=== PATIENT | male | born 1970 | race Caucasian/White ===

== ENCOUNTER 2020-10-13 22:22 | Emergency (ER) | payer MEDICAID, SELFPAY ==
--- NOTE | ~2020-10-13 | XR_ITS ---
EXAMINATION: XR LUMBOSACRAL SPINE CLINICAL INFORMATION: Fall COMPARISON: None TECHNIQUE: Three views of the lumbosacral spine. FINDINGS: No acute fracture or subluxation. Vertebral body height and alignment maintained. Disc spaces are maintained. Small multilevel endplate osteophytes are present. The sacroiliac joints are symmetric. The sacrum appears intact. Nonobstructive bowel gas pattern. 0.4 cm calcification in the left abdomen could represent a renal calculus. XR/XR lumbar spine 2-3V IMPRESSION: No acute abnormality. Mild degenerative changes throughout the spine.
--- NOTE | ~2020-10-13 | XR_ITS ---
EXAMINATION: XR HIP, RIGHT CLINICAL INFORMATION: Fall. COMPARISON: None TECHNIQUE: Frontal view of pelvis Two views of the right hip. FINDINGS: Bones and soft tissues are normal. No fracture. Alignment is anatomic. Hip joint space is maintained. XR/XR hip RT w PEL1V IMPRESSION: Normal right hip.
[2020-10-13 22:36] VITALS: BP 121/85; BP 130/80; PULSE 92; PULSE 97; RESP 18; TEMP 36.7; O2SAT 96; O2SAT 99; BMI 37.1
[2020-10-13] MEDS: Ketorolac Tromethamine 30 MG/ML VIAL IM (23:01)
--- NOTE | 2020-10-13 23:40 | ED_ITS ---
HPI - Fall General Chief Complaint: Fall Stated Complaint: Fall Source: patient Mode of arrival: ambulatory Limitations: no limitations History of Present Illness HPI Narrative: Patient presents to ED for lower back pain and right hip pain after fall. Patient states he was opening the door to his apartment and the handle came off which caused him to slip back in fall and hit his back and right hip onto a wooden frame. Patient denies hitting head or loss of consciousness. Patient denied he was drinking. Patient has not any blood thinners. Related Data Previous Rx's Medication Instructions Recorded naproxen 500 mg PO BID PRN #20 tab 10/14/20 Allergies Allergy/AdvReac Type Severity Reaction Status Date / Time shellfish derived Allergy Unknown NAUSEA & Verified 10/13/20 22:44 [SHELLFISH DERIVED] VOMITING Review of Systems Review of Systems: Yes all other systems are reviewed and are negative Constitutional: Constitutional: Reports as per HPI and Reports no additional constitutional complaints Eyes: Eyes: Reports as per HPI and Reports no additional eye complaints ENT: Reports system reviewed and no additional complaints, except as docum ented and Reports as per HPI Cardiovascular: Cardiovascular: Reports as per HPI and Reports no additional cardiovascular complaints Respiratory: Respiratory: Reports as per HPI and Reports no additional respiratory complaints Gastrointestinal: Gastrointestinal: Reports as per HPI and Reports no additional gastrointestinal complaints Genitourinary: Genitourinary: Reports no additional male genitourinary complaints and Reports as per HPI Musculoskeletal: Musculoskeletal: Reports no additional musculoskeletal complaints, Reports as per HPI, Reports back pain and Reports arthralgias (Right hip pain) Neurologic: Reports system reviewed and no additional complaints, except as documented and Reports as per HPI Psychiatric: Psychiatric: Reports no additional psychiatric complaints and Reports as per HPI [facility] Past Medical History Medical History (Updated 10/14/20 @ 00:00 by VERENA Reece) Cerebral palsy Diabetes Social History Social History Advance Directives: No Advance Directives Information Provided: No Physical Exam Vital Signs: Vital Signs: Last Vital Signs Temp 98.1 F 10/13/20 22:36 Pulse 97 10/13/20 22:36 Resp 18 10/13/20 22:36 BP 121/85 10/13/20 22:36 Pulse Ox 96 10/13/20 22:36 Body Mass Index 37.1 Const: General: cooperative, healthy appearing, comfortable, no acute distress, well developed, alert, awake and Physically active Orientation/consciousness: patient oriented x3 HENMT: Head: Yes normal to inspection, Yes No palpable skull fracture present, Yes normocephalic, Yes atraumatic and No abrasion Eyes: General: appearance normal, both eyes and all related structures Neck: Neck: Yes normal visual inspection, Yes full ROM, Yes no lymphadenopathy, Yes no meningeal signs, Yes trachea midline, Yes supple and No tender Chest: Chest palpation & inspection: normal inspection of the chest and normal palpation of entire chest wall Resp: Effort & Inspection: normal respiratory effort and able to speak in complete sentences Cardio: Jugular venous distension: no JVD Heart sounds: S1 normal heart sound present and S2 normal heart sound present GI: Inspection: Yes normal to inspection and No abdominal wall ecchymosis Palpation (GI): Soft to palpation, not firm, nontender, no guarding and not rigid : General: No CVA tenderness and Yes no CVA tenderness Back/Spine/Pelvis: Back: no CVA tenderness, No CVA tenderness and back tenderness (lumbar) Skin: General skin exam: no rashes or lesions noted and elasticity normal Neuro: General: patient oriented x3, gait normal, no meningeal signs and CN's II-XI intact bilaterally Cranial nerves: Yes CN's II-XII intact bilaterally Extrem: Other: Positive for right posterior hip pain. Negative for any external or internal rotation of lower extremities General: Yes normal to inspection and Yes full ROM Psych: Appearance: grossly normal, well kempt and not disheveled Course Course Course Narrative: Patient will be stay for back and right hip x-ray. No need for head CT C-spine. Patient denies hitting head or passing out Reevaluation(s) Reevaluation #1: X-rays negative for fracture. Patient will be discharged Time: 23:57 MDM - Fall MDM Narrative Medical decision making narrative: Back pain. Right hip pain Discharge Plan Discharge Clinical Impression: Fall Patient Disposition: Home, Self-Care Instructions: Contusion in Adults (ED) Additional Instructions: Return to the ED immediately for any headache, dizziness, abdominal pain, vomiting, severe back pain, dysuria, hematuria, rectal bleeding, vomiting blood, chest pain, shortness of breath, or any other concerning symptoms. Your x-rays came back negative for any fracture Prescriptions: New naproxen 500 mg tablet 500 mg PO BID PRN (Reason: pain) Qty: 20 RF: 0 Interventions: ED Discharge Assessment Last Done: 10/14/20 00:23 Discharge Date/Time: 10/14/20 00:27 Print Language: Trinidadian
== END 2020-10-14 00:27 | disposition home or self-care (01) ==
PROVIDERS: Emergency Provider Internal Medicine
DX: M54.5 Low back pain (principal); M25.551 Pain in right hip; E11.9 Type 2 diabetes mellitus without complications; G80.9 Cerebral palsy, unspecified; Z91.81 History of falling
CPT/HCPCS: 72100; 73502; 96372; 99284; J1885

== ENCOUNTER 2020-11-10 00:17 | Emergency (ER) | payer MEDICAID, SELFPAY ==
[2020-11-10 00:25] VITALS: BP 116/75; PULSE 94; RESP 20; TEMP 36.4; O2SAT 94; BMI 35.6
--- NOTE | 2020-11-10 00:46 | ED.GENADULT ---
HPI - General Adult General Chief complaint: General Medical Stated complaint: body pain etoh Time Seen by Provider: 11/10/20 00:33 Source: patient Mode of arrival: ambulatory Limitations: no limitations History of Present Illness HPI narrative: Patient comes emergency room complaining of a severe spasm he had earlier tonight prior to arrival. Patient states that at 10:00 o'clock in the morning he started drinking. Patient states that he has frequent body spasms. They recently came today is because all he was drinking, he had a very strong spasm, stronger than usual, his friends got concerned and asked him to come to the emergency room. Patient states head that he does not want any medication and workup. Related Data Previous Rx's Medication Instructions Recorded naproxen 500 mg tablet 500 mg PO BID PRN #20 tab 10/14/20 Allergies Allergy/AdvReac Type Severity Reaction Status Date / Time shellfish derived Allergy Unknown NAUSEA & Verified 11/10/20 00:31 [SHELLFISH DERIVED] VOMITING Review of Systems Review of Systems: Constitutional : No Weight loss, No Fever, No Chills, No Night Sweats, No Fatigue, No Malaise ENT/Mouth : No Hearing loss, No Ear Pain, No Nasal Congestion, No Sinus Pain, No Hoarseness, No sore throat, No Rhinorrhea, No Swallowing Difficulty Eyes: No Eye Pain, No Swelling, No Redness, No Foreign Body, No Discharge, No Vision Changes Cardiovascular : No Chest Pain, No SOB, No Dyspnea on Exertion, No Orthopnea, No Edema, No Palpitations Respiratory : No Cough, No Sputum, No Wheezing, No Smoke Exposure, No Dyspnea Gastrointestinal : No Nausea, No Vomiting, No Diarrhea, No Constipation, No abdominal Pain, No Hematochezia, No Melena Genitourinary : no irregular bleeding, No Dysuria, No Urinary Frequency, No Hematuria, No Urinary Incontinence, No Urgency, No Flank Pain, No Urinary Flow Changes, No Hesitancy Musculoskeletal : Chronic diffuse body pains and muscle aches Skin : No Skin Lesions, No rash Neuro : No Weakness, No Numbness, No Paresthesias, No Loss of Consciousness, No Dizziness, No Headache Psych : No Anxiety/Panic, No Depression, No SI/HI/AH/VH, No Social Issues, Heme/Lymph: No Bruising, No Bleeding,No Lymphadenopathy Endocrine : No Polyuria, No Polydipsia, No Temperature Intolerance PMF Past Medical History Medical History Cerebral palsy Diabetes Social History Social History Advance Directives: No Advance Directives Information Provided: Yes Physical Exam Vital Signs: Vital Signs: Last Vital Signs Temp 97.5 F 11/10/20 00:25 Pulse 94 11/10/20 00:25 Resp 20 11/10/20 00:25 BP 116/75 11/10/20 00:25 Pulse Ox 94 11/10/20 00:25 Body Mass Index 35.6 Const: Other: Appearance: Alert. Oriented X3. No acute distress. Eyes: Pupils equal, round and reactive to light. ENT: Pharynx normal. Neck: Normal inspection. Neck supple. No lymph nodes noted. No crepitus CVS: Normal heart rate and rhythm. Pulses normal. Normal S1 and S2 Respiratory: No respiratory distress. Breath sounds normal. No Wheezing. No rales Abdomen: Soft and nontender. No rigidity. No distention. good BS x4 Skin: Skin warm and dry. Normal skin color. Normal skin turgor. Extremities: No lower extremity edema. No lower extremity edema. No Lacerations. No Rash Neuro: Oriented X 3. No motor deficit. No sensory deficit. Moving all extermities. No slurred speech. Ambulatory with help of his cane, steady gait unassisted. Course Course Course Narrative: Patient states that this is his baseline. Declined any further workup. Patient has a sober ride who will pick him up. Discharge Plan Discharge Clinical Impression: Muscle spasm Patient Disposition: Home, Self-Care Instructions: Muscle Spasm (ED) Additional Instructions: Please follow-up with your primary care physician tomorrow. If you have any worsening or new symptoms, please return to the emergency room or call 911 Prescriptions: No Action naproxen 500 mg tablet 500 mg PO BID PRN (Reason: pain) Qty: 20 RF: 0
== END 2020-11-10 01:08 | disposition home or self-care (01) ==
LOC: HO.ED 00:52
PROVIDERS: Emergency Provider Emergency Medicine
DX: R25.2 Cramp and spasm (principal); E11.9 Type 2 diabetes mellitus without complications; G80.9 Cerebral palsy, unspecified
CPT/HCPCS: 99282; 99283

== ENCOUNTER 2021-03-28 20:30 | Emergency (ER) | payer MEDICAID, SELFPAY ==
--- NOTE | ~2021-03-28 | XR_ITS ---
EXAMINATION: LUMBAR SPINE AND SACRUM/COCCYX CLINICAL INFORMATION: Lower back pain COMPARISON: Lumbar spine 10/13/2020, right hip and pelvis 10/13/2020 TECHNIQUE: 3 views lumbosacral spine, 4 views sacrum and coccyx FINDINGS: Again seen are some minimal degenerative changes present predominantly with some endplate osteophytes. Disc spaces and vertebral body heights are well-maintained. The sacrum and coccyx appear unremarkable. Incidental note made of a sclerotic density in the left femoral head, most likely a bone island, unchanged when compared to 10/13/2020. XR/XR sacrum coccyx min 2V IMPRESSION: No acute finding. Some minimal degenerative changes in the spine are unchanged. Bone island left femoral head unchanged.
--- NOTE | ~2021-03-28 | XR_ITS ---
EXAMINATION: LUMBAR SPINE AND SACRUM/COCCYX CLINICAL INFORMATION: Lower back pain COMPARISON: Lumbar spine 10/13/2020, right hip and pelvis 10/13/2020 TECHNIQUE: 3 views lumbosacral spine, 4 views sacrum and coccyx FINDINGS: Again seen are some minimal degenerative changes present predominantly with some endplate osteophytes. Disc spaces and vertebral body heights are well-maintained. The sacrum and coccyx appear unremarkable. Incidental note made of a sclerotic density in the left femoral head, most likely a bone island, unchanged when compared to 10/13/2020. XR/XR lumbar spine 2-3V IMPRESSION: No acute finding. Some minimal degenerative changes in the spine are unchanged. Bone island left femoral head unchanged.
[2021-03-28 20:49] VITALS: BP 120/76; PULSE 111; RESP 16; TEMP 36.3; O2SAT 96; BMI 34.7
--- NOTE | 2021-03-28 21:06 | ED_ITS ---
HPI - Fall General Chief Complaint: Fall Stated Complaint: fall Source: patient Mode of arrival: ambulatory Limitations: no limitations History of Present Illness HPI Narrative: Patient presents via EMS for lower back pain after slipping in the snow and landing on his bottom. complaint: fall Onset (ago): hour(s) (Within the hour of arrival) Fall from: standing Fall witnessed: yes, by bystander Place fall occurred: street Loss of consciousness: none Prolonged down time: no Symptoms prior to fall: none Context: tripped/slipped (Slipped on ice) Location of injury: back Severity: mild Severity scale (1-10): 4 Quality: aching Associated symptoms (after fall): denies Related Data Previous Rx's Medication Instructions Recorded naproxen 500 mg tablet 500 mg PO BID PRN #20 tab 10/14/20 Allergies Allergy/AdvReac Type Severity Reaction Status Date / Time shellfish derived Allergy Unknown NAUSEA & Verified 11/10/20 00:31 [SHELLFISH DERIVED] VOMITING Review of Systems Review of Systems: Constitutional: No Fever, No Chills ENT/Mouth: No Ear Pain, No Hoarseness, No sore throat Eyes: No Eye Pain, No Swelling, No Redness, No Foreign Body Cardiovascular: No Chest Pain, No SOB Respiratory: No Cough, No Dyspnea Gastrointestinal: No Nausea, No Vomiting, No Diarrhea, No abdominal Pain Genitourinary: No Dysuria, No Hematuria Musculoskeletal: positive lower back pain, No Myalgias, No Joint Swelling Skin: No Skin lacerations, No rash Neuro: No Weakness, No Numbness, No Paresthesias, No Loss of Consciousness, No Dizziness, No Headache Psych: No Anxiety/Panic, No Depression Heme/Lymph: no easy bruising, no Lymphadenopathy Endocrine: No Polyuria, No Polydipsia Yes all other systems are reviewed and are negative [facility], [facility] Past Medical History Attestation statement: The following information was validated with the patient. Source: old records reviewed Medical History Cerebral palsy Diabetes Social History Social History Advance Directives: No Advance Directives Information Provided: Yes Physical Exam Vital Signs: Vital Signs: Last Vital Signs Temp 97.4 F 03/28/21 20:49 Pulse 111 H 03/28/21 20:49 Resp 16 03/28/21 20:49 BP 120/76 03/28/21 20:49 Pulse Ox 96 03/28/21 20:49 BMI result Body Mass Index 34.7 Appearance: Alert. Oriented X3. No acute distress. Eyes: Pupils equal, round and reactive to light. ENT: Pharynx normal. Neck: Normal inspection. Neck supple. CVS: Normal heart rate and rhythm. Pulses normal. Respiratory: No respiratory distress. Breath sounds normal. Abdomen: Soft and nontender. Skin: Skin warm and dry. Normal skin color. Normal skin turgor. Extremities: No lower extremity edema. Moves all extremities against resistance. Neuro: No motor deficit. No sensory deficit. Cranial nerves 2-12 intact. Course Course Course Narrative: 50-year-old male presents with lower back pain after falling in the snow. Patient does have chronic back pain as well as cerebral palsy. Patient does not report any symptoms indicating cauda equina, is able to move all extremities against resistance. Full range of motion bilateral lower extremities, pelvis is stable. No abdominal tenderness to palpation. Will order x-rays of lumbar and sacral spine. X-rays are negative for acute findings requiring emergent intervention. Plan of care is to discharge home and have patient follow-up with primary care physician. Patient verbalized understanding of and agrees to plan of care discharge home. MDM - Fall Differential Diagnosis Differential diagnosis: Likely fracture and compression fracture Medical Records Attestation: I reviewed the patient's medical records. Imaging Data Lumbar coccyx x-ray: Attestation: I personally reviewed and interpreted this imaging study as tika matamoros: Radiologist's impression: EXAMINATION: LUMBAR SPINE AND SACRUM/COCCYX CLINICAL INFORMATION: Lower back pain? COMPARISON: Lumbar spine 10/13/2020, right hip and pelvis 10/13/2020 TECHNIQUE: 3 views lumbosacral spine, 4 views sacrum and coccyx? FINDINGS: Again seen are some minimal degenerative changes present predominantly with some endplate osteophytes. Disc spaces and vertebral body heights are well-maintained. The sacrum and coccyx appear unremarkable. Incidental note made of a sclerotic density in the left femoral head, most likely a bone island, unchanged when compared to 10/13/2020. XR/XR sacrum coccyx min 2V IMPRESSION: No acute finding. Some minimal degenerative changes in the spine are unchanged. Bone island? left femoral head unchanged.? Discharge Plan Discharge Clinical Impression: Fall, Chronic back pain Patient Disposition: Home, Self-Care Instructions: Back Pain (ED), Fall Prevention (ED) Additional Instructions: Your evaluated for injury sustained from a fall. X-rays of lumbar spine and coccyx are negative for acute findings requiring emergent intervention. X-rays indicate chronic degeneration of the spine and a bone island of the left femoral head. These findings are unchanged. Please consider following up with pain management chronic back pain. Thank you for choosing this emergency department for evaluation. Please follow-up with primary care physician as needed. Return to the emergency department for any new, concerning, or worsening symptoms. Prescriptions: No Action naproxen 500 mg tablet 500 mg PO BID PRN (Reason: pain) Qty: 20 RF: 0 Referrals: Raleigh Dasilva MD [Physician] - 2 days (Chronic back pain)
[2021-03-28] MEDS: Lidocaine 4 % Patch ADH..PATCH 2 PATCH TRANSDERMA (21:35)
[2021-03-28] MEDS: Ketorolac Tromethamine 60 MG/2 ML VIAL IM (21:36)
== END 2021-03-28 23:51 | disposition home or self-care (01) ==
PROVIDERS: Emergency Provider Emergency Medicine
DX: M54.50 Low back pain, unspecified (principal); G89.29 Other chronic pain; E11.9 Type 2 diabetes mellitus without complications; G80.9 Cerebral palsy, unspecified
CPT/HCPCS: 72100; 72220; 96372; 99284; J1885

== ENCOUNTER 2021-05-02 21:43 | Emergency (ER) | payer MEDICAID, SELFPAY ==
--- NOTE | ~2021-05-02 | CT_ITS ---
EXAMINATION: NONCONTRAST HEAD CT NONCONTRAST CERVICAL SPINE CT INDICATION INFORMATION: Headache. Fall. Seizure. COMPARISON: 12/20/2018 TECHNIQUE: Separate noncontrast CT examinations of the head and cervical spine were performed. Coronal and sagittal images were created for each examination at the technologist workstation. This CT examination was performed using dose optimization techniques as appropriate, variously including the following: *Automated exposure control *Adjustment of mA and/or kV according to patient size (this includes techniques or standardized protocols for targeted exams where dose is matched to indication/reason for exam; i.e. extremities or head) *Use of iterative reconstruction technique DLP: 1298 mGy-cm FINDINGS: Head: There is no evidence of acute intracranial hemorrhage or territorial infarction. No abnormal mass effect or midline shift is seen. Duggan to white matter differentiation is well preserved. No extra-axial fluid collections are identified. No hydrocephalus. No significant volume loss. There is no abnormal attenuation within the brain parenchyma. No acute osseous or soft tissue abnormality. The mastoid air cells and visualized portions of the paranasal sinuses are well aerated. Cervical spine: There is anatomic alignment of the vertebral bodies and posterior elements. The atlantoaxial and atlantooccipital articulations are intact. Vertebral body heights are maintained. There is multilevel intervertebral disc space narrowing with endplate osteophyte formation and facet arthropathy. No evidence of acute fracture. No prevertebral soft tissue swelling. Visualized portions of the lung apices are unremarkable. The thyroid gland is unremarkable. CT/CT head/brain wo con IMPRESSION: 1. No acute intracranial finding. 2. No fracture or malalignment of the cervical spine. Mild degenerative change.
--- NOTE | ~2021-05-02 | XR_ITS ---
EXAMINATION: XR HIP, LEFT CLINICAL INFORMATION: Fall. Left hip pain. COMPARISON: None TECHNIQUE: Frontal view of pelvis Two views of the left hip. FINDINGS: Bones and soft tissues are normal. No fracture. Alignment is anatomic. Hip joint space is maintained. XR/XR hip LT w PEL1V IMPRESSION: Normal left hip.
--- NOTE | ~2021-05-02 | CT_ITS ---
EXAMINATION: NONCONTRAST HEAD CT NONCONTRAST CERVICAL SPINE CT INDICATION INFORMATION: Headache. Fall. Seizure. COMPARISON: 12/20/2018 TECHNIQUE: Separate noncontrast CT examinations of the head and cervical spine were performed. Coronal and sagittal images were created for each examination at the technologist workstation. This CT examination was performed using dose optimization techniques as appropriate, variously including the following: *Automated exposure control *Adjustment of mA and/or kV according to patient size (this includes techniques or standardized protocols for targeted exams where dose is matched to indication/reason for exam; i.e. extremities or head) *Use of iterative reconstruction technique DLP: 1298 mGy-cm FINDINGS: Head: There is no evidence of acute intracranial hemorrhage or territorial infarction. No abnormal mass effect or midline shift is seen. Duggan to white matter differentiation is well preserved. No extra-axial fluid collections are identified. No hydrocephalus. No significant volume loss. There is no abnormal attenuation within the brain parenchyma. No acute osseous or soft tissue abnormality. The mastoid air cells and visualized portions of the paranasal sinuses are well aerated. Cervical spine: There is anatomic alignment of the vertebral bodies and posterior elements. The atlantoaxial and atlantooccipital articulations are intact. Vertebral body heights are maintained. There is multilevel intervertebral disc space narrowing with endplate osteophyte formation and facet arthropathy. No evidence of acute fracture. No prevertebral soft tissue swelling. Visualized portions of the lung apices are unremarkable. The thyroid gland is unremarkable. CT/CT cervical spine wo con IMPRESSION: 1. No acute intracranial finding. 2. No fracture or malalignment of the cervical spine. Mild degenerative change.
[2021-05-02 21:55] VITALS: BP 134/87; PULSE 91; RESP 18; TEMP 36.7; O2SAT 96; BMI 36.3
[2021-05-02 21:58] LABS: Glucose, Whole Blood 141 mg/dL (60-115)
--- NOTE | 2021-05-02 22:16 | PC.NURSE ---
PT TO ED VIA EMS AFTER HAVING A POSSIBLE SEIZURE AT THIS [facility]. PT WAS SHAKING AND UNRESPONSIVE FOR ABOUT 30 SEC ACCORDING TO BYSTANDERS. PT ARRIVES WITH C-COLLAR IN PLACE. PT C/O PAIN TO LEFT HIP AND LEG AREA WHICH IS CHRONIC PAIN. PT ARRIVES ALERT, SPEAKING IN FULL SENTENCES, RESPIRATIONS N/L. SKIN W/D. WILL CONTINUE TO MONITOR PT. SEIZURE PRECAUTIONS INITIATED.
--- NOTE | 2021-05-02 22:29 | ED_ITS ---
HPI - General Adult General Chief complaint: Seizure Stated complaint: seizure Time Seen by Provider: 05/02/21 22:29 Source: patient Mode of arrival: EMS Limitations: no limitations History of Present Illness HPI narrative: 51-year-old male who presents emergency department for evaluation of a fall and altered mental status. Patient states that he walks with a cane and lost his balance. He states that he fell landing on his left hip and back. He denied any head injury or loss of consciousness. He states that immediately after falling he developed a tightness in his chest pain. He described as a tightness in his chest. He states the head to focus on breathing. He states that he then felt for away. He states that he could not hear anybody but he felt like he was awake. Bystanders stated that he began shaking and was unresponsive. He was not incontinent of bowel or urine. An ambulance was called and the patient was then brought to the emergency department. Patient states that he has cerebral palsy and has weakness of his right arm in his lower extremities and has to use canes to walk. He states that he falls frequently. States that had a fall 2 weeks prior and was seen here in the emergency department. States he feels depressed but he is not suicidal or homicidal. Patient's blood sugar by EMS was 141. He denied being ill prior to falling. He states that he did drink 3 [place] Lights tonight but is last blood light was at 6:00 p.m.. Related Data Previous Rx's Medication Instructions Recorded naproxen 500 mg tablet 500 mg PO BID PRN #20 tab 10/14/20 Allergies Allergy/AdvReac Type Severity Reaction Status Date / Time shellfish derived Allergy Unknown NAUSEA & Verified 11/10/20 00:31 [SHELLFISH DERIVED] VOMITING Review of Systems Verdana 4l Review of Systems: Yes all other systems are reviewed and Verdana 4d are negative [facility] Past Medical History [facility] Narrative: Social history: The patient states he lives alone. He smokes 1 pack of cigarettes per day times 34 years. He does drink alcohol 2 times a week any did drink 3 beers tonight. He states that he occasionally uses marijuana edibles but he did not take any tonight. Medical History Cerebral palsy Diabetes Social History Social History Advance Directives: No Physical Exam Verdana 4l Vital Signs: Verdana 4d Verdana 4d Vital Signs: Verdana 4d Verdana 4Bd Last Vital Signs Verdana 4d Telephone Service Representative New 4d Telephone Service Representative New 4d Temp 98.1 F 05/02/21 21:55 Telephone Service Representative New 4d Pulse 91 05/02/21 21:55 Telephone Service Representative New 4d Resp 18 05/02/21 21:55 BP 134/87 05/02/21 21:55 Pulse Ox 96 05/02/21 21:55 BMI result Body Mass Index 36.3 Const: Other: Awake, alert, male patient, he does not appear to be in distress, answers all questions appropriately. He does not appear to be intoxicated. HENMT: Head: Yes normal to inspection, Yes normocephalic and Yes atraumatic Ears: ex ternal ears normal General nose exam: Normal external nose present Face and sinus: Yes normal facial exam Mouth: Normal oral and palatal mucosa present Throat: Yes posterior oropharynx normal Eyes: General: appearance normal, both eyes and all related structures Pupils: Equal, round and reactive pupils present Neck: Neck: Yes normal visual inspection, Yes no lymphadenopathy, Yes trachea midline and Yes supple Chest: Chest palpation & inspection: normal inspection of the chest and normal palpation of entire chest wall Resp: Effort & Inspection: normal respiratory effort and able to speak in complete sentences Auscultation: clear to auscultation bilaterally Cardio: Rate: regular rate Rhythm: regular rhythm Heart sounds: S1 normal heart sound present, S2 normal heart sound present and no murmurs GI: Inspection: Yes normal to inspection Palpation (GI): Soft to palpation, nontender and no guarding Auscultation: normal bowel sounds : General: Yes no CVA tenderness Back/Spine/Pelvis: Back: no CVA tenderness Skin: General skin exam: no rashes or lesions noted Neuro: Other: Patient has atrophy of his lower extremities and is able to move them against gravity symmetrically. He has symmetric upper extremity strength Cranial nerves: Yes CN's II-XII intact bilaterally and Yes Equal, round and reactive pupils present Cognition (Neuro): normal cognition Extrem: Other: Patient has atrophy of his lower extremities consistent with cerebral palsy. Psych: Appearance: grossly normal Speech and movement: Normal speech and movement present Affect: normal affect Attitude: cooperative Thought process: Normal thought process present Thought content: Normal thought content present Course Course Course Narrative: 51-year-old male with history of cerebral palsy and diabetes who fell this evening landing on his left hip and lower back. Patient then had chest tightness with difficulty breathing. I believe developed hyperventilation syndrome causing him to have shaking. Based on his description of the events I do not think that he had a seizure. The patient had a normal point of care glucose by the paramedics. I did order a CBC, CMP, troponin, EKG, CT scan of the head and cervical spine. Is also complaining of left hip pain from the fall therefore left hip and pelvic x-rays will be obtained. I also ordered to get Toradol 60 mg IM for his left hip pain. 2345: CT scan of the head and cervical spine were negative. X-ray the left hip was negative. Laboratory evaluation was unremarkable including a non detectable troponin. EKG was normal. I did discuss these findings with the patient. The patient most likely had anxiety/hyperventilation syndrome causing him to have a non electrical seizures/pseudo-seizure. He did get some improvement of his pain with the IM Toradol. I did discuss this with the patient. The patient will be discharged home. Medical Decision Making Lab Data Result diagrams: 05/02/21 23:00 05/02/21 23:00 Labs: Lab Results 05/02/21 05/02/21 05/02/21 Range/Units 21:54 23:00 23:00 WBC 14.2 H (4.8-10.8) X10*3/uL RBC 4.89 (4.60-5.80) X10*6/uL Hgb 14.8 (14.0-18.0) g/dl Hct 43.7 (42.0-52.0) % MCV 89.4 (80.0-98.0) fL MCH 30.3 (27.0-33.0) pg MCHC 33.9 (31.0-36.0) g/dl RDW 13.2 (11.0-16.0) % Plt Count 220 (160-400) X10*3/uL MPV 10.1 (9.4-12.4) fL Immature Gran % (Auto) 0.4 (0.0-0.4) % Neut % (Auto) 78.1 H (45-73) % Lymph % (Auto) 12.6 L (20-40) % [place] % (Auto) 8.3 (2-11) % Eos % (Auto) 0.2 (0-4) % Baso % (Auto) 0.4 (0-2) % Lymph # (Auto) 1.8 (1.2-4.9) X10*3/uL [place] # (Auto) 1.2 (0.1-1.2) X10*3/uL Eos # (Auto) 0.0 (0.0-0.4) X10*3/uL Baso # (Auto) 0.1 (0.0-0.2) X10*3/uL Abs Immat Gran (auto) 0.06 H (0.00-0.03) X10*3/uL Absolute Neuts (auto) 11.1 H (2.0-8.3) x10*3/uL Absolute Nucleated RBC 0.000 (0.0-0.012) X10*3/uL Nucleated RBC % (auto) 0.0 (0.0-0.2) /100WBC PT 11.9 (9.9-13.0) SEC INR 1.0 (0.9-1.1) APTT 32.1 (24.1-38.0) SEC Sodium (135-145) mmol/L Potassium (3.3-5.1) mmol/L Chloride (96-108) mmol/L Carbon Dioxide (22-29) mmol/L Anion Gap (12-20) BUN (9-16) mg/dL Creatinine (0.5-1.4) mg/dL Estim Creat Clear Calc Estimated GFR POC Glucose 141 H (60-115) mg/dL Random Glucose (60-115) mg/dL Calcium (8.4-10.2) mg/dL Total Bilirubin (0.0-1.0) mg/dL AST (5-37) U/L ALT (0-40) U/L Alkaline Phosphatase (39-117) U/L Troponin I High Sens (<3.5-35.0) ng/L Total Protein (6.5-8.0) g/dL Albumin (3.5-5.0) g/dL 05/02/21 05/02/21 Range/Units 23:00 23:00 WBC (4.8-10.8) X10*3/uL RBC (4.60-5.80) X10*6/uL Hgb (14.0-18.0) g/dl Hct (42.0-52.0) % MCV (80.0-98.0) fL MCH (27.0-33.0) pg MCHC (31.0-36.0) g/dl RDW (11.0-16.0) % Plt Count (160-400) X10*3/uL MPV (9.4-12.4) fL Immature Gran % (Auto) (0.0-0.4) % Neut % (Auto) (45-73) % Lymph % (Auto) (20-40) % [place] % (Auto) (2-11) % Eos % (Auto) (0-4) % Baso % (Auto) (0-2) % Lymph # (Auto) (1.2-4.9) X10*3/uL [place] # (Auto) (0.1-1.2) X10*3/uL Eos # (Auto) (0.0-0.4) X10*3/uL Baso # (Auto) (0.0-0.2) X10*3/uL Abs Immat Gran (auto) (0.00-0.03) X10*3/uL Absolute Neuts (auto) (2.0-8.3) x10*3/uL Absolute Nucleated RBC (0.0-0.012) X10*3/uL Nucleated RBC % (auto) (0.0-0.2) /100WBC PT (9.9-13.0) SEC INR (0.9-1.1) APTT (24.1-38.0) SEC Sodium 140 (135-145) mmol/L Potassium 4.0 (3.3-5.1) mmol/L Chloride 108 (96-108) mmol/L Carbon Dioxide 25 (22-29) mmol/L Anion Gap 11 L (12-20) BUN 9 (9-16) mg/dL Creatinine 0.77 (0.5-1.4) mg/dL Estim Creat Clear Calc 112.8 Estimated GFR > 60 POC Glucose (60-115) mg/dL Random Glucose 116 H (60-115) mg/dL Calcium 9.4 (8.4-10.2) mg/dL Total Bilirubin 0.4 (0.0-1.0) mg/dL AST 14 (5-37) U/L ALT 21 (0-40) U/L Alkaline Phosphatase 70 (39-117) U/L Troponin I High Sens < 3.5 (<3.5-35.0) ng/L Total Protein 6.8 (6.5-8.0) g/dL Albumin 4.1 (3.5-5.0) g/dL ECG Data Attestation: I personally reviewed and interpreted this ECG as follows: Interpretation: 2302: Normal sinus rhythm rate of 84, normal DE interval QRS duration QTC interval, inverted T-wave in lead 3, no ST segment elevation, no ST segment depression, no PACs, no PVCs, this is a normal EKG. Discharge Plan Discharge Clinical Impression: Fall, Chest pain, Contusion of hip, left, Acute hyperventilation syndrome Patient Disposition: Home, Self-Care Instructions: Hyperventilation (ED), Hip Contusion (ED) Additional Instructions: Your laboratory evaluation was normal. Your EKG was normal. The CT scan of your head and neck revealed no fractures/broken bones The x-ray of your left hip revealed no fracture/broken bones You most likely developed hyperventilation syndrome from falling and hurting her chest causing you to nearly pass out. I do not think that you had a seizure tonight. Take ibuprofen 200 mg pills, 3 pills every 6 hours as needed for pain. Take Tylenol (acetaminophen) 500 mg pills, 2 pills every 4 to 6 hours as needed for pain. Follow-up with your doctor in 2 days. Please return to the emergency department if your symptoms get worse or if you develop any symptoms that are concerning to you. Prescriptions: No Action naproxen 500 mg tablet 500 mg PO BID PRN (Reason: pain) Qty: 20 0RF
--- NOTE | 2021-05-02 22:32 | ECG_ITS ---
Test Reason : SEIZURE Blood Pressure : / mmHG Vent. Rate : 084 BPM Atrial Rate : 084 BPM P-R Int : 148 ms QRS Dur : 090 ms QT Int : 364 ms P-R-T Axes : 037 067 024 degrees QTc Int : 430 ms Normal sinus rhythm Normal ECG When compared with ECG of 06-DEC-2018 17:10, No significant change was found Referred By: Torin Woods Electronically Signed By:MARIE JIMENEZ MD
--- NOTE | 2021-05-02 22:35 | PC.NURSE ---
c-collar removed by . pt to ct in stretcher.
[2021-05-02] MEDS: Ketorolac Tromethamine 30 MG/ML VIAL 60 MG IM (23:00)
--- NOTE | 2021-05-02 23:01 | PC.NURSE ---
pt medicated for pain.
[2021-05-02 23:07] LABS: Basophils Absolute Auto 0.1 X10*3/uL (0.0-0.2); Basophils Percent Auto 0.4 % (0-2); Eosinophils Percent Auto 0.2 % (0-4); Hematocrit 43.7 % (42.0-52.0); Hemoglobin 14.8 g/dl (14.0-18.0); Imm Gran Abs Auto 0.06 X10*3/uL (0.00-0.03); Imm Gran Pct Auto 0.4 % (0.0-0.4); Lymphocytes Absolute Auto 1.8 X10*3/uL (1.2-4.9); Lymphocytes Percent Auto 12.6 % (20-40); MANUAL DIFF FLAG NO; Mean Corpuscular HGB Conc 33.9 g/dl (31.0-36.0); Mean Corpuscular Hemoglobin 30.3 pg (27.0-33.0); Mean Corpuscular Volume 89.4 fL (80.0-98.0); Mean Platelet Volume 10.1 fL (9.4-12.4); Monocytes Absolute Auto 1.2 X10*3/uL (0.1-1.2); Monocytes Percent Auto 8.3 % (2-11); Neutrophils Absolute Auto 11.1 x10*3/uL (2.0-8.3); Neutrophils Percent Auto 78.1 % (45-73); Platelet Count 220 X10*3/uL (160-400); Red Blood Count 4.89 X10*6/uL (4.60-5.80); Red Cell Distribution Width 13.2 % (11.0-16.0); White Blood Count 14.2 X10*3/uL (4.8-10.8)
--- NOTE | 2021-05-02 23:07 | PC.NURSE ---
pt medicated for pain.
[2021-05-02 23:11] LABS: Prothrombin Time 11.9 SEC (9.9-13.0)
[2021-05-02 23:13] LABS: Partial Thromboplastin Time 32.1 SEC (24.1-38.0)
[2021-05-02 23:22] LABS: Alanine Aminotransferase 21 U/L (0-40); Albumin Level 4.1 g/dL (3.5-5.0); Alkaline Phosphatase 70 U/L (39-117); Anion Gap 11 (12-20); Aspartate Amino Transferase 14 U/L (5-37); Bilirubin Total 0.4 mg/dL (0.0-1.0); Blood Urea Nitrogen 9 mg/dL (9-16); Calcium 9.4 mg/dL (8.4-10.2); Carbon Dioxide 25 mmol/L (22-29); Chloride 108 mmol/L (96-108); Creatinine Clr Calc Pharmacy 112.8; Estimated Glomerular Filt Rate > 60; Glucose Random 116 mg/dL (60-115); Sodium 140 mmol/L (135-145); Total Protein 6.8 g/dL (6.5-8.0)
[2021-05-02 23:28] LABS: Troponin-I High Sensitivity < 3.5 ng/L (<3.5-35.0)
== END 2021-05-03 00:38 | disposition home or self-care (01) ==
LOC: HO.ED 05-03 00:26
PROVIDERS: Emergency Provider Emergency Medicine Emergency Medical Services
DX: R07.9 Chest pain, unspecified (principal); F45.8 Other somatoform disorders; S70.02XA Contusion of left hip, initial encounter; W01.0XXA Fall on same level from slipping, tripping and stumbling without subsequent striking against object, initial encounter; G80.9 Cerebral palsy, unspecified; E11.9 Type 2 diabetes mellitus without complications; Z91.81 History of falling; Y93.89 Activity, other specified; Y92.019 Unspecified place in single-family (private) house as the place of occurrence of the external cause; Y99.9 Unspecified external cause status
CPT/HCPCS: 36415; 70450; 72125; 73502; 80053; 82947; 84484; 85025; 85610; 85730; 93005; 96372; 99284; J1885

== ENCOUNTER 2021-10-02 03:49 | Emergency (ER) | payer MEDICAID, SELFPAY ==
[2021-10-02 03:56] VITALS: BP 124/90; PULSE 101; RESP 16; O2SAT 97; BMI 31.1
--- NOTE | 2021-10-02 04:14 | ED_ITS ---
HPI - General Adult General Chief complaint: Back Pain/Injury Stated complaint: Back/Hip pain Time Seen by Provider: 10/02/21 04:12 Source: patient Mode of arrival: ambulatory Limitations: no limitations History of Present Illness HPI narrative: patient with history of cerebral palsy,chronic left hip pain with scoliosis been here multiple times x-ray negative in the past comes here as pain is still there taking naproxen which are not helping much no recent fall or injury Related Data Previous Rx's Medication Instructions Recorded naproxen 500 mg tablet 500 mg PO BID PRN pain #20 tabs 10/14/20 tramadol 50 mg tablet 50 mg PO BEDTIME PRN pain #20 tabs 10/02/21 Allergies Allergy/AdvReac Type Severity Reaction Status Date / Time shellfish derived Allergy Unknown NAUSEA & Verified 10/02/21 03:58 [SHELLFISH DERIVED] VOMITING Review of Systems Review of Systems: Yes all other systems are reviewed and are negative [facility] [place] Past Medical History Medical History Cerebral palsy Diabetes Social History Social History Alcohol intake: former Patient Tobacco Use Status: Current everyday Tobacco user Smoked in Last 30 Days: Yes Use of substances other than those prescribed or required for medical reasons: No Advance Directives: No Physical Exam ED Vital Signs: Vital Signs - 24 hr 10/02/21 03:56 10/02/21 04:22 Temperature 98.1 F Pulse Rate 101 H 90 Respiratory Rate 16 16 Blood Pressure 124/90 H 128/84 Pulse Oximetry 97 93 Oxygen Delivery Method Room Air Nasal Cannula Oxygen Flow Rate 4 BMI result Body Mass Index 31.1 Appearance: Alert. Oriented X3. No acute distress. ENT: Pharynx normal. Oral Mucosa moist Neck: Normal inspection. Neck supple. CVS: Normal heart rate and rhythm. Pulses normal. Respiratory: No respiratory distress. Equal air entry bilateral, no wheezing/rales/rhonchi Abdomen: Soft and nontender. Bowel sounds are present, no mass palpable, no CVA tenderness Skin: Skin warm and dry. Normal skin color. Normal skin turgor. back: scoliosis diffuse muscular pain no focal spinal tenderness good range of movement of the hips without any significant pain pain is more localized in the back area Extremities: No lower extremity edema. No calf tenderness Neuro: Oriented X 3. No motor deficit. walks with a walker with antalgic gait from cerebral palsy Discharge Plan Discharge Clinical Impression: Chronic left hip pain Patient Disposition: Home, Self-Care Instructions: Hip Pain (ED) Additional Instructions: continue to take naproxen as prescribed by your PCP tramadol for severe pain follow with PCP Prescriptions: New tramadol 50 mg tablet 50 mg PO BEDTIME PRN (Reason: pain) Qty: 20 0RF No Action naproxen 500 mg tablet 500 mg PO BID PRN (Reason: pain) Qty: 20 0RF
[2021-10-02 04:22] VITALS: BP 128/84; PULSE 90; RESP 16; TEMP 36.7; O2SAT 93
[2021-10-02] MEDS: Ketorolac Tromethamine 60 MG/2 ML VIAL IM (04:43)
== END 2021-10-02 04:50 | disposition home or self-care (01) ==
PROVIDERS: Emergency Provider Internal Medicine
DX: G89.29 Other chronic pain (principal); M25.552 Pain in left hip; G80.9 Cerebral palsy, unspecified; E11.9 Type 2 diabetes mellitus without complications; F17.200 Nicotine dependence, unspecified, uncomplicated
CPT/HCPCS: 96372; 99284; J1885

== ENCOUNTER 2021-11-23 21:26 | Emergency (ER) | payer MEDICAID, SELFPAY ==
[2021-11-23 22:33] VITALS: BP 122/81; PULSE 92; RESP 18; TEMP 36.8; O2SAT 97; BMI 32.9
--- NOTE | 2021-11-23 23:19 | ED_ITS ---
HPI - Psych General Chief Complaint: Psychiatric Symptoms Stated Complaint: anxiety Time Seen by Provider: 11/23/21 23:18 Source: patient Mode of arrival: EMS Limitations: no limitations History of Present Illness MD complaint: suicidal ideation and feels depressed Onset (ago): week(s) (1) Duration: getting worse History of same: Yes Relieving factors: none Exacerbating factors: other Context: significant life stressor Associated psychiatric symptoms: depression and suicidal ideation Associated symptoms: denies other symptoms Treatments prior to arrival: none If self harm: admits thoughts of self harm and has plan Related Data Home Medications Medication Instructions Recorded Confirmed duloxetine 20 mg capsule,delayed 1 cap PO DAILY 11/23/21 11/23/21 release meloxicam 15 mg tablet 1 tab PO DAILY PRN pain 11/23/21 11/23/21 Allergies Allergy/AdvReac Type Severity Reaction Status Date / Time shellfish derived Allergy Unknown NAUSEA & Verified 10/02/21 03:58 [SHELLFISH DERIVED] VOMITING Review of Systems Review of Systems: Constitutional : No Fever, No Chills ENT/Mouth : No Ear Pain, No Nasal Congestion, No sore throat Eyes: No Eye Pain, No Swelling, No Redness Cardiovascular : No Chest Pain, No SOB Respiratory : No Cough, No Sputum, No Dyspnea Gastrointestinal : No Nausea, No Vomiting, No Diarrhea, No Hematochezia, No Melena Genitourinary : No Dysuria, No Urinary Frequency, No Hematuria Musculoskeletal : No Myalgias Skin : No Skin Lesions, No rash Neuro : No Weakness, No Numbness, No Paresthesias, No Dizziness, No Headache Psych : positive Anxiety, positive Depression, positive SI no HI Heme/Lymph: No Lymphadenopathy Endocrine : No Polyuria, No Polydipsia All other systems reviewed and are negative [facility] Past Medical History Attestation statement: The following information was validated with the patient. Medical History Cerebral palsy Diabetes Social History Social History Alcohol intake: former Patient Tobacco Use Status: Current everyday Tobacco user Advance Directives: No Advance Directives Information Provided: Yes Physical Exam Vital Signs: Vital Signs: Last Vital Signs Temp 98.3 F 11/23/21 22:33 Pulse 92 11/23/21 22:33 Resp 18 11/23/21 22:33 BP 122/81 11/23/21 22:33 Pulse Ox 97 11/23/21 22:33 O2 Del Method 11/23/21 22:33 BMI result Body Mass Index 32.9 Appearance: Alert. Oriented X3. No acute distress. Eyes: Pupils equal, round and reactive to light. ENT: Pharynx normal. Neck: Normal inspection. Neck supple. CVS: Normal heart rate and rhythm. Pulses normal. Respiratory: No respiratory distress. Breath sounds normal. Abdomen: Soft and non-tender. Skin: Skin warm and dry. Normal skin color. Normal skin turgor. Extremities: No lower extremity edema. No calf ttp Neuro: Oriented X 3. No motor deficit. No sensory deficit. CN2-12 intact Course Course Course Narrative: Physician observation started at 1150pm. Patient placed in physician observation because the patient needed more time for BHN to asses the need for psych admission. At the time observation was started the patient's vitals were stable, patient is alert and oriented but anxious given ativan for sleep, Neuro: nonfocal, CV RRR, Lungs clear Physician observation ended at 230am Patient seen and cleared by crisis. Plan is to follow up as outpatient. NAD, lungs clear, CV RRR, Abd nontender, Neuro intact. Disposition is for home. MDM - Psych MDM Narrative Medical decision making narrative: 51 yo male with hx of CP and depression - here with c/o depression and SI. Will obtain labs and order BHN consult. PO ativan for sleep. Lab Data Result diagrams: 11/23/21 23:54 11/23/21 23:54 Labs: Lab Results 11/23/21 11/23/21 11/23/21 Range/Units 23:16 23:25 23:54 WBC 11.3 H (4.8-10.8) X10*3/uL RBC 5.39 (4.60-5.80) X10*6/uL Hgb 16.2 (14.0-18.0) g/dl Hct 48.5 (42.0-52.0) % MCV 90.0 (80.0-98.0) fL MCH 30.1 (27.0-33.0) pg MCHC 33.4 (31.0-36.0) g/dl RDW 13.5 (11.0-16.0) % Plt Count 237 (160-400) X10*3/uL MPV 10.0 (9.4-12.4) fL Immature Gran % (Auto) 0.4 (0.0-0.4) % Neut % (Auto) 65.6 (45-73) % Lymph % (Auto) 23.9 (20-40) % [place] % (Auto) 7.9 (2-11) % Eos % (Auto) 1.8 (0-4) % Baso % (Auto) 0.4 (0-2) % Lymph # (Auto) 2.7 (1.2-4.9) X10*3/uL [place] # (Auto) 0.9 (0.1-1.2) X10*3/uL Eos # (Auto) 0.2 (0.0-0.4) X10*3/uL Baso # (Auto) 0.0 (0.0-0.2) X10*3/uL Abs Immat Gran (auto) 0.04 H (0.00-0.03) X10*3/uL Absolute Neuts (auto) 7.4 (2.0-8.3) x10*3/uL Absolute Nucleated RBC 0.000 (0.0-0.012) X10*3/uL Nucleated RBC % (auto) 0.0 (0.0-0.2) /100WBC Sodium (135-145) mmol/L Potassium (3.3-5.1) mmol/L Chloride (96-108) mmol/L Carbon Dioxide (22-29) mmol/L Anion Gap (12-20) BUN (9-16) mg/dL Creatinine (0.5-1.4) mg/dL Estim Creat Clear Calc Estimated GFR POC Glucose 132 H (60-115) mg/dL Random Glucose (60-115) mg/dL Calcium (8.4-10.2) mg/dL Total Bilirubin (0.0-1.0) mg/dL Direct Bilirubin (0.0-0.5) mg/dL AST (5-37) U/L ALT (0-40) U/L Alkaline Phosphatase (39-117) U/L Total Protein (6.5-8.0) g/dL Albumin (3.5-5.0) g/dL Urine Opiates Screen (Not Detect) Urine Fentanyl Screen (Not Detect) Ur Barbiturates Screen (Not Detect) Ur Phencyclidine Scrn (Not Detect) Ur Amphetamines Screen (Not Detect) U Benzodiazepines Scrn (Not Detect) Urine Cocaine Screen (Not Detect) U Marijuana (THC) Screen (Not Detect) Ethyl Alcohol mg/dL COVID-19 (MARGARET) Negative (Negative) COVID-19 Clin Com See Note 11/23/21 11/23/21 11/24/21 Range/Units 23:54 23:54 00:31 WBC (4.8-10.8) X10*3/uL RBC (4.60-5.80) X10*6/uL Hgb (14.0-18.0) g/dl Hct (42.0-52.0) % MCV (80.0-98.0) fL MCH (27.0-33.0) pg MCHC (31.0-36.0) g/dl RDW (11.0-16.0) % Plt Count (160-400) X10*3/uL MPV (9.4-12.4) fL Immature Gran % (Auto) (0.0-0.4) % Neut % (Auto) (45-73) % Lymph % (Auto) (20-40) % [place] % (Auto) (2-11) % Eos % (Auto) (0-4) % Baso % (Auto) (0-2) % Lymph # (Auto) (1.2-4.9) X10*3/uL [place] # (Auto) (0.1-1.2) X10*3/uL Eos # (Auto) (0.0-0.4) X10*3/uL Baso # (Auto) (0.0-0.2) X10*3/uL Abs Immat Gran (auto) (0.00-0.03) X10*3/uL Absolute Neuts (auto) (2.0-8.3) x10*3/uL Absolute Nucleated RBC (0.0-0.012) X10*3/uL Nucleated RBC % (auto) (0.0-0.2) /100WBC Sodium 144 (135-145) mmol/L Potassium 4.0 (3.3-5.1) mmol/L Chloride 107 (96-108) mmol/L Carbon Dioxide 25 (22-29) mmol/L Anion Gap 16 (12-20) BUN 15 D (9-16) mg/dL Creatinine 0.91 (0.5-1.4) mg/dL Estim Creat Clear Calc 90.8 Estimated GFR > 60 POC Glucose (60-115) mg/dL Random Glucose 116 H (60-115) mg/dL Calcium 9.9 (8.4-10.2) mg/dL Total Bilirubin 0.4 (0.0-1.0) mg/dL Direct Bilirubin 0.2 (0.0-0.5) mg/dL AST 14 (5-37) U/L ALT 21 (0-40) U/L Alkaline Phosphatase 75 (39-117) U/L Total Protein 7.4 (6.5-8.0) g/dL Albumin 4.6 (3.5-5.0) g/dL Urine Opiates Screen Not Detected (Not Detect) Urine Fentanyl Screen Not Detected (Not Detect) Ur Barbiturates Screen Not Detected (Not Detect) Ur Phencyclidine Scrn Not Detected (Not Detect) Ur Amphetamines Screen Not Detected (Not Detect) U Benzodiazepines Scrn Not Detected (Not Detect) Urine Cocaine Screen Not Detected (Not Detect) U Marijuana (THC) Screen Not Detected (Not Detect) Ethyl Alcohol < 10 mg/dL COVID-19 (MARGARET) (Negative) COVID-19 Clin Com Discharge Plan Discharge Clinical Impression: Depression Patient Disposition: Home, Self-Care Instructions: Depression (ED) Additional Instructions: return to ED for any worsening symptoms or concerns please follow up with your providers Prescriptions: No Action meloxicam 15 mg tablet 1 tab PO DAILY PRN (Reason: pain) duloxetine 20 mg capsule,delayed release(DR/EC) 1 cap PO DAILY
[2021-11-23 23:28] LABS: Glucose, Whole Blood 132 mg/dL (60-115)
[2021-11-23 23:37] LABS: COVID-19 Test Negative (Negative); IDNOW Serial# 16C4AD1C
[2021-11-23] MEDS: LORazepam 1 MG TABLET PO (23:49)
[2021-11-24] LABS: Basophils Percent Auto 0.4 % (0-2); Eosinophils Absolute Auto 0.2 X10*3/uL (0.0-0.4); Eosinophils Percent Auto 1.8 % (0-4); Hematocrit 48.5 % (42.0-52.0); Hemoglobin 16.2 g/dl (14.0-18.0); Imm Gran Abs Auto 0.04 X10*3/uL (0.00-0.03); Imm Gran Pct Auto 0.4 % (0.0-0.4); Lymphocytes Absolute Auto 2.7 X10*3/uL (1.2-4.9); Lymphocytes Percent Auto 23.9 % (20-40); MANUAL DIFF FLAG NO; Mean Corpuscular HGB Conc 33.4 g/dl (31.0-36.0); Mean Corpuscular Hemoglobin 30.1 pg (27.0-33.0); Monocytes Absolute Auto 0.9 X10*3/uL (0.1-1.2); Monocytes Percent Auto 7.9 % (2-11); Neutrophils Absolute Auto 7.4 x10*3/uL (2.0-8.3); Neutrophils Percent Auto 65.6 % (45-73); Platelet Count 237 X10*3/uL (160-400); Red Blood Count 5.39 X10*6/uL (4.60-5.80); Red Cell Distribution Width 13.5 % (11.0-16.0); White Blood Count 11.3 X10*3/uL (4.8-10.8)
[2021-11-24 00:21] LABS: Anion Gap 16 (12-20); Blood Urea Nitrogen 15 mg/dL (9-16); Calcium 9.9 mg/dL (8.4-10.2); Carbon Dioxide 25 mmol/L (22-29); Chloride 107 mmol/L (96-108); Creatinine Clr Calc Pharmacy 90.8; Estimated Glomerular Filt Rate > 60; Glucose Random 116 mg/dL (60-115); Sodium 144 mmol/L (135-145)
[2021-11-24 00:25] LABS: Alanine Aminotransferase 21 U/L (0-40); Albumin Level 4.6 g/dL (3.5-5.0); Alkaline Phosphatase 75 U/L (39-117); Aspartate Amino Transferase 14 U/L (5-37); Bilirubin Direct 0.2 mg/dL (0.0-0.5); Bilirubin Total 0.4 mg/dL (0.0-1.0); Ethanol < 10 mg/dL; Total Protein 7.4 g/dL (6.5-8.0)
[2021-11-24 00:56] LABS: Amphetamine Screen Urine Not Detected (Not Detect); Barbiturates, Urine Not Detected (Not Detect); Benzodiazepines Screen Urine Not Detected (Not Detect); Cannabinoid Screen Urine Not Detected (Not Detect); Cocaine Screen Urine Not Detected (Not Detect); Fentanyl, urine Not Detected (Not Detect); Opiate Screen Urine Not Detected (Not Detect); Phencyclidine Screen Urine Not Detected (Not Detect)
== END 2021-11-24 02:41 | disposition home or self-care (01) ==
PROVIDERS: Emergency Provider Emergency Medicine
DX: F33.1 Major depressive disorder, recurrent, moderate (principal); R45.851 Suicidal ideations; Z20.822 Contact with and (suspected) exposure to COVID-19; Z79.899 Other long term (current) drug therapy; F17.200 Nicotine dependence, unspecified, uncomplicated; Z71.6 Tobacco abuse counseling
CPT/HCPCS: 36415; 80048; 80076; 80307; 82077; 82947; 85025; 87635; 99283; 99284

== ENCOUNTER 2021-12-09 21:44 | Emergency (ER) | payer MEDICAID, SELFPAY ==
[2021-12-09 22:57] VITALS: PULSE 94; RESP 18; TEMP 36.3; O2SAT 93; BMI 32.0
== END 2021-12-10 06:19 | disposition left against medical advice (07) ==
LOC: HO.ED 12-10 05:44
PROVIDERS: Emergency Provider Emergency Medicine
DX: H53.8 Other visual disturbances (principal)
CPT/HCPCS: 99281

== ENCOUNTER 2022-05-21 02:39 | Inpatient (IN) | payer OTHER, SELFPAY ==
--- NOTE | ~2022-05-21 | XR_ITS ---
EXAMINATION: LEFT FEMUR 2 VIEWS RIGHT FEMUR 2 VIEWS BILATERAL HIPS WITH PELVIS 5 VIEWS CLINICAL INFORMATION: Pain status post fall COMPARISON: None TECHNIQUE: As above nonweightbearing FINDINGS: No fracture dislocation or side. No knee effusion. Incidental bone island left femoral head and greater trochanter. XR/XR femur RT 2V IMPRESSION: No fracture.
--- NOTE | ~2022-05-21 | XR_ITS ---
EXAMINATION: LEFT FEMUR 2 VIEWS RIGHT FEMUR 2 VIEWS BILATERAL HIPS WITH PELVIS 5 VIEWS CLINICAL INFORMATION: Pain status post fall COMPARISON: None TECHNIQUE: As above nonweightbearing FINDINGS: No fracture dislocation or side. No knee effusion. Incidental bone island left femoral head and greater trochanter. XR/XR hip BI w PEL1V IMPRESSION: No fracture.
--- NOTE | ~2022-05-21 | XR_ITS ---
EXAMINATION: LEFT FEMUR 2 VIEWS RIGHT FEMUR 2 VIEWS BILATERAL HIPS WITH PELVIS 5 VIEWS CLINICAL INFORMATION: Pain status post fall COMPARISON: None TECHNIQUE: As above nonweightbearing FINDINGS: No fracture dislocation or side. No knee effusion. Incidental bone island left femoral head and greater trochanter. XR/XR femur LT 2V IMPRESSION: No fracture.
--- NOTE | ~2022-05-21 | CT_ITS ---
EXAMINATION: CT head/brain wo IV con CLINICAL INFORMATION: Reason for Exam unwitnessed fall COMPARISON: CT head without contrast 05/02/2021 TECHNIQUE: Contiguous axial imaging was performed from the skull base to vertex without intravenous contrast. Sagittal and coronal reformatted images were obtained. This CT examination was performed using dose optimization techniques as appropriate, variously including the following: * Automated exposure control * Adjustment of mA and/or kV according to patient size (this includes techniques or standardized protocols for targeted exams where dose is matched to indication/reason for exam; i.e. extremities or head) Use of iterative reconstruction technique DLP: 698 mGy-cm FINDINGS: No acute osseous or soft tissue abnormality. The mastoid air cells and visualized portions of the paranasal sinuses are well aerated. There is no evidence of acute intracranial hemorrhage or territorial infarction. No abnormal mass effect or midline shift is seen. [place]ug[place] to white matter differentiation is well preserved. No extra-axial fluid collections are identified. No hydrocephalus. No significant volume loss. There is no abnormal attenuation within the brain parenchyma. CT/CT head/brain wo IV con IMPRESSION: No acute intracranial abnormality including hemorrhage, mass effect, hydrocephalus, or acute territorial edematous infarction.
[2022-05-21 02:50] VITALS: BP 113/81; PULSE 105; RESP 17; TEMP 36.6; O2SAT 96; BMI 32.9
--- NOTE | 2022-05-21 03:05 | MHC.EDTECH ---
PT made aware that a urine sample is needed. Pt states he is unable to ogo right now. Urinal left bedside/call ackerman in reach
--- NOTE | 2022-05-21 03:12 | PC.NURSE ---
Pt changed over, belongings secured. tech ed/woodshop teacher at bedside for labs. Awaiting primary MD santana.
--- NOTE | 2022-05-21 03:16 | ED_ITS ---
HPI - Psych General Chief Complaint: Psychiatric Symptoms Stated Complaint: HI/SI Time Seen by Provider: 05/21/22 03:11 Source: patient and EMS Mode of arrival: EMS Limitations: no limitations History of Present Illness HPI Narrative: Patient comes to the emergency room complaining of suicidal and homicidal ideations. Patient lives in his van, seems that earlier today he had an argument with his brother. Police department picked up the patient after his brother called 911. Here in the emergency room, patient states that he has suicidal thoughts, but also patient states that ?if his brother's screws him ove r , he will kill him. Patient has been off his medications for several weeks Related Data Home Medications Medication Instructions Recorded Confirmed No Known Home Meds 05/21/22 05/21/22 Allergies Allergy/AdvReac Type Severity Reaction Status Date / Time shellfish derived Allergy Unknown NAUSEA & Verified 12/09/21 22:57 [SHELLFISH DERIVED] VOMITING Review of Systems Review of Systems: Constitutional : No Weight loss, No Fever, No Chills, No Night Sweats, No Fatigue, No Malaise ENT/Mouth : No Hearing loss, No Ear Pain, No Nasal Congestion, No Sinus Pain, No Hoarseness, No sore throat, No Rhinorrhea, No Swallowing Difficulty Eyes: No Eye Pain, No Swelling, No Redness, No Foreign Body, No Discharge, No Vision Changes Cardiovascular : No Chest Pain, No SOB, No Dyspnea on Exertion, No Orthopnea, No Edema, No Palpitations Respiratory : No Cough, No Sputum, No Wheezing, No Smoke Exposure, No Dyspnea Gastrointestinal : No Nausea, No Vomiting, No Diarrhea, No Constipation, No abdominal Pain, No Hematochezia, No Melena Genitourinary : no irregular bleeding, No Dysuria, No Urinary Frequency, No Hematuria, No Urinary Incontinence, No Urgency, No Flank Pain, No Urinary Flow Changes, No Hesitancy Musculoskeletal : No joint pain, No Myalgias, No Joint Swelling Skin : No Skin Lesions, No rash Neuro : No Weakness, No Numbness, No Paresthesias, No Loss of Consciousness, No Dizziness, No Headache Psych : Complain of feeling angry, depressed, suicidal and homicidal towards his brother Heme/Lymph: No Bruising, No Bleeding,No Lymphadenopathy Endocrine : No Polyuria, No Polydipsia, No Temperature Intolerance PMFSH Past Medical History Medical History Cerebral palsy Diabetes Social History Social History Alcohol intake: former Patient Tobacco Use Status: Current everyday Tobacco user Advance Directives: No Advance Directives Information Provided: Yes Physical Exam Vital Signs: Vital Signs: Last Vital Signs Temp 97.8 F 05/21/22 02:50 Pulse 105 H 05/21/22 02:50 Resp 17 05/21/22 02:50 BP 113/81 05/21/22 02:50 Pulse Ox 96 05/21/22 02:50 O2 Del Method 05/21/22 02:50 BMI result Body Mass Index 32.9 Course Course Course Narrative: -denies any physical complaints. Patient has chronic right upper and lower extremity weakness from previous CVA. -routine labs pending. -Care team consult pending -physician observation started at 03:20 Discharge Plan Discharge Clinical Impression: Feeling suicidal, Homicidal ideation Patient Disposition: Still a Patient Prescriptions: No Action No Known Home Meds
[2022-05-21 03:24] LABS: Basophils Percent Auto 0.3 % (0-2); Eosinophils Absolute Auto 0.1 X10*3/uL (0.0-0.4); Hematocrit 45.7 % (42.0-52.0); Hemoglobin 15.6 g/dl (14.0-18.0); Imm Gran Abs Auto 0.04 X10*3/uL (0.00-0.03); Imm Gran Pct Auto 0.3 % (0.0-0.4); Lymphocytes Absolute Auto 2.5 X10*3/uL (1.2-4.9); Lymphocytes Percent Auto 21.4 % (20-40); MANUAL DIFF FLAG SCAN; Mean Corpuscular HGB Conc 34.1 g/dl (31.0-36.0); Mean Corpuscular Hemoglobin 29.9 pg (27.0-33.0); Mean Corpuscular Volume 87.5 fL (80.0-98.0); Mean Platelet Volume 10.5 fL (9.4-12.4); Monocytes Percent Auto 8.4 % (2-11); Neutrophils Absolute Auto 7.9 x10*3/uL (2.0-8.3); Neutrophils Percent Auto 68.6 % (45-73); PLT CLUMP 1; Red Blood Count 5.22 X10*6/uL (4.60-5.80); Red Cell Distribution Width 13.1 % (11.0-16.0); SCAN SMEAR FLAG 1
[2022-05-21 03:35] LABS: COVID-19 Test Negative (Negative); IDNOW Serial# 6674DD1D
[2022-05-21 03:36] LABS: White Blood Count 11.5 X10*3/uL (4.8-10.8)
[2022-05-21 03:42] LABS: Platelet Count 206 X10*3/uL (160-400)
[2022-05-21 03:43] LABS: SLIDE REVIEW VERIFIED
[2022-05-21 03:48] LABS: Acetaminophen LAB < 17 mcg/mL (<30); Ethanol 52 mg/dL; Salicylate < 5.0 mg/dL (15-30)
[2022-05-21 03:53] LABS: Alanine Aminotransferase 39 U/L (0-40); Albumin Level 4.4 g/dL (3.5-5.0); Alkaline Phosphatase 66 U/L (39-117); Anion Gap 18 (12-20); Aspartate Amino Transferase 19 U/L (5-37); Bilirubin Total 0.4 mg/dL (0.0-1.0); Blood Urea Nitrogen 13 mg/dL (9-16); Calcium 9.4 mg/dL (8.4-10.2); Carbon Dioxide 19 mmol/L (22-29); Chloride 108 mmol/L (96-108); Creatinine Clr Calc Pharmacy 107.5; Estimated Glomerular Filt Rate > 60; Glucose Random 92 mg/dL (60-115); Potassium 4.1 mmol/L (3.3-5.1); Sodium 141 mmol/L (135-145); Total Protein 7.1 g/dL (6.5-8.0)
[2022-05-21 04:10] VITALS: BP 131/75; PULSE 99; RESP 16; TEMP 36.5; O2SAT 97
[2022-05-21 04:21] LABS: Appearance Urine Clear; Color Urine Yellow; Glucose Urine UA Negative (Negative); Leukocyte Esterase Urine Negative (Negative); Nitrite Urine Negative (Negative); PH 5.5 (5.0-9.0); Urine Blood Negative (Negative); Urine Ketones Trace mg/dL (Negative); Urine Protein Negative (Neg-Trace)
[2022-05-21 04:30] LABS: Amphetamine Screen Urine Not Detected (Not Detect); Barbiturates, Urine Not Detected (Not Detect); Benzodiazepines Screen Urine Not Detected (Not Detect); Cannabinoid Screen Urine Not Detected (Not Detect); Cocaine Screen Urine Not Detected (Not Detect); Fentanyl, urine Not Detected (Not Detect); Opiate Screen Urine Not Detected (Not Detect); Phencyclidine Screen Urine Not Detected (Not Detect)
[2022-05-21 08:39] VITALS: BP 130/76; PULSE 102; RESP 16; O2SAT 97
--- NOTE | 2022-05-21 08:41 | PHA.MEDREC ---
Pharmacy Consult ? Medication Reconciliation Pharmacy has completed the medication reconciliation. Patient states noncompliance, however, patient had three scripts picked up from [facility] on 05/19/22. I chose to add these to the list as its something the patient should be taking
[2022-05-21] MEDS: Atorvastatin Calcium 10 MG TABLET PO (10:18)
[2022-05-21] MEDS: metFORMIN HCl 500 MG TABLET PO ×2 (10:19→21:17)
[2022-05-21 10:35] VITALS: BP 139/80; PULSE 93; RESP 16; O2SAT 94
--- NOTE | 2022-05-21 11:17 | PC.NURSE ---
PT ATE ALL OF BREAKFAST, AWAITING CARE TEAM CONSULT FOR REPORTED ENDORSEMENT OF SI/HI TOWARDS BROTHER. CONTINUES TO ENDORSE HI TOWARDS BROTHER, REMAINS CALM AND COOPERATIVE AFFECT. ASKING TO USE CELL PHONE TO CHECK MESSAGES, PT EXPLAINED NEED FOR SAFETY PROTOCOLS AND INABILITY TO HAVE ACCESS TO CELL PHONE WHILE UNDER CRISIS EVALUATION. PT ARGUEMENTATIVE ABOUT THIS.
[2022-05-21 12:20] LABS: Glucose, Whole Blood 110 mg/dL (60-115)
[2022-05-21] MEDS: Nicotine Polacrilex 2 MG GUM BUCCAL ×2 (14:46→23:56)
[2022-05-21] MEDS: LORazepam 1 MG TABLET 2 MG PO (14:46)
[2022-05-21 15:09] VITALS: BP 123/81; PULSE 94; RESP 17; TEMP 36.6; O2SAT 96
--- NOTE | 2022-05-21 17:05 | ECG_ITS ---
Test Reason : GENERAL MEDICAL Blood Pressure : / mmHG Vent. Rate : 098 BPM Atrial Rate : 098 BPM P-R Int : 148 ms QRS Dur : 088 ms QT Int : 362 ms P-R-T Axes : 044 082 013 degrees QTc Int : 462 ms Normal sinus rhythm Normal ECG When compared with ECG of 02-MAY-2021 23:02, No significant change was found Referred By: Randi Lange Electronically Signed By:Yassine Staples
[2022-05-21 18:27] VITALS: BP 113/81; PULSE 105; RESP 17; TEMP 36.6; O2SAT 96
[2022-05-21 20:56] VITALS: BMI 33.9
[2022-05-21 21:10] LABS: Glucose, Whole Blood 164 mg/dL (60-115)
[2022-05-21] MEDS: traZODone HCL 50 MG TABLET PO (21:16)
[2022-05-22 06:00] VITALS: BP 136/84; PULSE 105; RESP 18; TEMP 36.4; O2SAT 96
[2022-05-22] MEDS: Nicotine Polacrilex 2 MG GUM 4 MG BUCCAL ×3 (08:31→15:28)
--- NOTE | 2022-05-22 09:05 | HO.PSYADMNOT ---
Documented by User: Laly FranzRocioAmee, APPRENTICE PAINTER HAND 05/22/22 09:05 HPI Chief Complaint: Depression with Si/Hi [facility] Medical History Cerebral palsy Diabetes Diagnostics Vital Signs (24Hr): Vital Signs - 24 hr 05/21/22 10:35 05/21/22 15:09 05/21/22 18:27 Temperature 97.9 F 97.8 F Pulse Rate 93 94 105 H Respiratory Rate 16 17 17 Blood Pressure 139/80 123/81 113/81 Pulse Oximetry 94 96 96 Oxygen Delivery Method Room Air Room Air Room Air BMI result Body Mass Index 33.9 Labs 05/21/22 03:15 05/21/22 03:15 Labs: Laboratory Results - last 48 hr 05/21/22 05/21/22 05/21/22 03:10 03:15 03:15 WBC 11.5 H RBC 5.22 Hgb 15.6 Hct 45.7 MCV 87.5 MCH 29.9 MCHC 34.1 RDW 13.1 Plt Count 206 MPV 10.5 Immature Gran % (Auto) 0.3 Neut % (Auto) 68.6 Lymph % (Auto) 21.4 [place] % (Auto) 8.4 Eos % (Auto) 1.0 Baso % (Auto) 0.3 Lymph # (Auto) 2.5 [place] # (Auto) 1.0 Eos # (Auto) 0.1 Baso # (Auto) 0.0 Abs Immat Gran (auto) 0.04 H Absolute Neuts (auto) 7.9 Absolute Nucleated RBC 0.000 Nucleated RBC % (auto) 0.0 Smear Tech's Comments VERIFIED Sodium 141 Potassium 4.1 Chloride 108 Carbon Dioxide 19 L Anion Gap 18 BUN 13 Creatinine 0.76 Estim Creat Clear Calc 107.5 Estimated GFR > 60 POC Glucose Random Glucose 92 Calcium 9.4 Total Bilirubin 0.4 AST 19 ALT 39 Alkaline Phosphatase 66 Total Protein 7.1 Albumin 4.4 Urine Color Urine Appearance Urine pH Ur Specific [place] Urine Protein Urine Glucose (UA) Urine Ketones Urine Blood Urine Nitrite Ur Leukocyte Esterase Salicylates Urine Opiates Screen Urine Fentanyl Screen Acetaminophen Ur Barbiturates Screen Ur Phencyclidine Scrn Ur Amphetamines Screen U Benzodiazepines Scrn Urine Cocaine Screen U Marijuana (THC) Screen Ethyl Alcohol COVID-19 (MARGARET) Negative COVID-19 Clin Com See Note 05/21/22 05/21/22 05/21/22 03:15 04:13 04:13 WBC RBC Hgb Hct MCV MCH MCHC RDW Plt Count MPV Immature Gran % (Auto) Neut % (Auto) Lymph % (Auto) [place] % (Auto) Eos % (Auto) Baso % (Auto) Lymph # (Auto) [place] # (Auto) Eos # (Auto) Baso # (Auto) Abs Immat Gran (auto) Absolute Neuts (auto) Absolute Nucleated RBC Nucleated RBC % (auto) Smear Tech's Comments Sodium Potassium Chloride Carbon Dioxide Anion Gap BUN Creatinine Estim Creat Clear Calc Estimated GFR POC Glucose Random Glucose Calcium Total Bilirubin AST ALT Alkaline Phosphatase Total Protein Albumin Urine Color Yellow Urine Appearance Clear Urine pH 5.5 Ur Specific [place] 1.010 Urine Protein Negative Urine Glucose (UA) Negative Urine Ketones Trace Urine Blood Negative Urine Nitrite Negative Ur Leukocyte Esterase Negative Salicylates < 5.0 L Urine Opiates Screen Not Detected Urine Fentanyl Screen Not Detected Acetaminophen < 17 Ur Barbiturates Screen Not Detected Ur Phencyclidine Scrn Not Detected Ur Amphetamines Screen Not Detected U Benzodiazepines Scrn Not Detected Urine Cocaine Screen Not Detected U Marijuana (THC) Screen Not Detected Ethyl Alcohol 52 COVID-19 (MARGARET) COVID-[facility] 05/21/22 05/21/22 11:49 21:07 WBC RBC Hgb Hct MCV MCH MCHC RDW Plt Count MPV Immature Gran % (Auto) Neut % (Auto) Lymph % (Auto) [place] % (Auto) Eos % (Auto) Baso % (Auto) Lymph # (Auto) [place] # (Auto) Eos # (Auto) Baso # (Auto) Abs Immat Gran (auto) Absolute Neuts (auto) Absolute Nucleated RBC Nucleated RBC % (auto) Smear Tech's Comments Sodium Potassium Chloride Carbon Dioxide Anion Gap BUN Creatinine Estim Creat Clear Calc Estimated GFR POC Glucose 110 164 H Random Glucose Calcium Total Bilirubin AST ALT Alkaline Phosphatase Total Protein Albumin Urine Color Urine Appearance Urine pH Ur Specific [place] Urine Protein Urine Glucose (UA) Urine Ketones Urine Blood Urine Nitrite Ur Leukocyte Esterase Salicylates Urine Opiates Screen Urine Fentanyl Screen Acetaminophen Ur Barbiturates Screen Ur Phencyclidine Scrn Ur Amphetamines Screen U Benzodiazepines Scrn Urine Cocaine Screen U Marijuana (THC) Screen Ethyl Alcohol COVID-19 (MARGARET) COVID-19 Clin Com Meds/Allergies Meds Home Medications Medication Instructions Recorded Confirmed Type atorvastatin 10 mg tablet 10 mg PO DAILY 05/21/22 05/21/22 History metformin 500 mg tablet 500 mg PO BID 05/21/22 05/21/22 History triamcinolone acetonide 0.5 % 1 appl topical BEDTIME 05/21/22 05/21/22 History topical ointment Allergies Allergies Allergy/AdvReac Type Severity Reaction Status Date / Time shellfish derived Allergy Unknown NAUSEA & Verified 12/09/21 22:57 [SHELLFISH DERIVED] VOMITING Assessment & Plan Statement Statement: I have reviewed the history and physical and performed a pertinent examination on my patient. No changes have occurred unless specified. If the History and Physical was not performed prior to admission, the Hospitalist's service will be consulted for completing the admission physical. Time Spent With Patient Time: Total time managing care of this patient today ____ minutes. Documented by User: Miguel A Chau MD 05/22/22 14:25 HPI Date of Service: 05/22/22 Chief Complaint: Depression with Si/Hi Sources of Information: patient interviewed, chart reviewed and crisis/core team assessment reviewed HPI Subjective Notes: [place] Warning, Conditional Voluntary and 3 Day Narrative: Pt is a 52 yo male with hx of Depression, Cerebal PMFSH Medical History Cerebral palsy Diabetes Diagnostics Labs 05/21/22 03:15 05/21/22 03:15 Meds/Allergies Meds Home Medications Medication Instructions Recorded Confirmed Type atorvastatin 10 mg tablet 10 mg PO DAILY 05/21/22 05/21/22 History metformin 500 mg tablet 500 mg PO BID 05/21/22 05/21/22 History triamcinolone acetonide 0.5 % 1 appl topical BEDTIME 05/21/22 05/21/22 History topical ointment Allergies Allergies Allergy/AdvReac Type Severity Reaction Status Date / Time shellfish derived Allergy Unknown NAUSEA & Verified 12/09/21 22:57 [SHELLFISH DERIVED] VOMITING Mental Status Exam Mental Status Exam Narrative: Pt is alert and oriented; behavior is cooperative, friendly and calm; patient is not in distress; dressed in casual attire with unkempt hair but adequate hygiene; mood is described as good and affect congruent; eye contact appropriate; Speech is normal rate, volume and prosody and not pressured; no psychomotor agitation/retardation present; thought process is organized and goal directed; Thought content is on tx; otherwise pertinent to relevant topics and without any delusional content, paranoid ideations or grandiosity; denies any SI/HI. There is no evidence of perceptual disturbance. Patients insight and judgment appear intact.
[2022-05-22] MEDS: metFORMIN HCl 500 MG TABLET PO (09:11)
[2022-05-22] MEDS: Atorvastatin Calcium 10 MG TABLET PO (09:11)
[2022-05-22] MEDS: Nicotine 21 MG PATCH.TD24 TRANSDERMA (09:11)
[2022-05-22 09:14] LABS: Glucose, Whole Blood 108 mg/dL (60-115)
[2022-05-22 09:45] LABS: Estimated Average Glucose 134 mg/dL; Hemoglobin A1c % 6.3 %
[2022-05-22 10:30] LABS: Cholesterol 178 mg/dL; HDL Cholesterol 31 mg/dL; LDL Cholesterol Calculated 127 mg/dl; Magnesium 1.8 mg/dL (1.6-2.6); Triglycerides 100 mg/dL
[2022-05-22 11:03] LABS: Folate 10.6 ng/mL (> or = 4.0); Free T4 (Free Thyroxine) 0.96 ng/dL (0.71-1.85); Thyroid Stimulating Hormone 2.79 uIU/mL (0.32-4.0); Vitamin B12 459 pg/mL (200-900)
--- NOTE | 2022-05-22 14:43 | P.HPPS_ITS ---
HPI Date of Service: 05/22/22 Chief Complaint: Depression with Si/Hi Sources of Information: patient interviewed, chart reviewed and crisis/core team assessment reviewed HPI Subjective Notes: [place] Warning, Conditional Voluntary and 3 Day Narrative: Pt is a 52 yo male with hx of Depression, cerebral palsy, diabetes with diabetic neuropathy who presents for homicidal and suicidal ideation in the face of relational strife. Patient said that overall he is not really depressed despite being homeless and with multiple medical comorbidities. Patient's parents are and he was living in their house until his brother, the executor of the estate kicked him out with plans to sell the house. The agreement was that the brother would sell the house and the money would be divided between them, however no formal Will was made. Patient learned the other day that his brother sold the house and kept the money and planned not to share any of it. Patient got very upset and started drinking heavily for 2 days and told his family that he was going to kill his brother and then kill himself. Patient patient said he changed his mind was because of his 2 nephews, not wanting to leave them father less. He called 911 on himself wanting to get help to be safe. Patient denies any other SI prior to this; he denies history aggression, manic episodes, AVH, trauma or drug use/abuse other than binge drinking every few weeks. Patient says that he is currently bitter, hurt and angry but that his homicidal thoughts have resolved and he said he is not going to harm his brother. No SI at all. Discussed why not take legal action and patient said that given his medical comorbidities he will not likely live that long and he is currently homeless; that said, the extended family has been urging him to take legal action and supports his claim 1/2 house. Patient does not who feel the need for medications for anxiety or depression. He would like to restart baclofen for muscle spasms associated with cerebral palsy. Past Psychiatric History: No psychiatric admissions Patient was once on Cymbalta for neuropathic pain but this was discontinued Patient did take an overdose of baclofen 1 or 2 years ago but he said it was not an intentional overdose rather just being foolish while drinking Medical Evaluation Reviewed: Yes [facility] Medical History (Updated 05/22/22 @ 17:25 by Miguel A Chau MD) Cerebral palsy Diabetes Family History: Deferred Social History: Currently homeless living in his car Substance History: Binge drinks for few weeks and then sober for few weeks Trauma History: Denies Diagnostics Vital Signs (24Hr): Vital Signs - 24 hr 05/21/22 15:09 05/21/22 18:27 05/22/22 06:00 Temperature 97.9 F 97.8 F 97.6 F Pulse Rate 94 105 H 105 H Respiratory Rate 17 17 18 Blood Pressure 123/81 113/81 136/84 Pulse Oximetry 96 96 96 Oxygen Delivery Method Room Air Room Air Room Air BMI result Body Mass Index 33.9 Labs 05/21/22 03:15 05/21/22 03:15 Labs: Laboratory Results - last 48 hr 05/21/22 05/21/22 05/21/22 03:10 03:15 03:15 WBC 11.5 H RBC 5.22 Hgb 15.6 Hct 45.7 MCV 87.5 MCH 29.9 MCHC 34.1 RDW 13.1 Plt Count 206 MPV 10.5 Immature Gran % (Auto) 0.3 Neut % (Auto) 68.6 Lymph % (Auto) 21.4 Fleming % (Auto) 8.4 Eos % (Auto) 1.0 Baso % (Auto) 0.3 Lymph # (Auto) 2.5 Fleming # (Auto) 1.0 Eos # (Auto) 0.1 Baso # (Auto) 0.0 Abs Immat Gran (auto) 0.04 H Absolute Neuts (auto) 7.9 Absolute Nucleated RBC 0.000 Nucleated RBC % (auto) 0.0 Smear Tech's Comments VERIFIED Sodium 141 Potassium 4.1 Chloride 108 Carbon Dioxide 19 L Anion Gap 18 BUN 13 Creatinine 0.76 Estim Creat Clear Calc 107.5 Estimated GFR > 60 POC Glucose Random Glucose 92 Estimat Average Glucose Hemoglobin A1c % Calcium 9.4 Magnesium Total Bilirubin 0.4 AST 19 ALT 39 Alkaline Phosphatase 66 Total Protein 7.1 Albumin 4.4 Triglycerides Cholesterol LDL Cholesterol, Calc HDL Cholesterol Vitamin B12 Folate TSH Free T4 Urine Color Urine Appearance Urine pH Ur Specific [place] Urine Protein Urine Glucose (UA) Urine Ketones Urine Blood Urine Nitrite Ur Leukocyte Esterase Salicylates Urine Opiates Screen Urine Fentanyl Screen Acetaminophen Ur Barbiturates Screen Ur Phencyclidine Scrn Ur Amphetamines Screen U Benzodiazepines Scrn Urine Cocaine Screen U Marijuana (THC) Screen Ethyl Alcohol COVID-19 (MARGARET) Negative COVID-19 Clin Com See Note 05/21/22 05/21/22 05/21/22 03:15 04:13 04:13 WBC RBC Hgb Hct MCV MCH MCHC RDW Plt Count MPV Immature Gran % (Auto) Neut % (Auto) Lymph % (Auto) Fleming % (Auto) Eos % (Auto) Baso % (Auto) Lymph # (Auto) Fleming # (Auto) Eos # (Auto) Baso # (Auto) Abs Immat Gran (auto) Absolute Neuts (auto) Absolute Nucleated RBC Nucleated RBC % (auto) Smear Tech's Comments Sodium Potassium Chloride Carbon Dioxide Anion Gap BUN Creatinine Estim Creat Clear Calc Estimated GFR POC Glucose Random Glucose Estimat Average Glucose Hemoglobin A1c % Calcium Magnesium Total Bilirubin AST ALT Alkaline Phosphatase Total Protein Albumin Triglycerides Cholesterol LDL Cholesterol, Calc HDL Cholesterol Vitamin B12 Folate TSH Free T4 Urine Color Yellow Urine Appearance Clear Urine pH 5.5 Ur Specific [place] 1.010 Urine Protein Negative Urine Glucose (UA) Negative Urine Ketones Trace Urine Blood Negative Urine Nitrite Negative Ur Leukocyte Esterase Negative Salicylates < 5.0 L Urine Opiates Screen Not Detected Urine Fentanyl Screen Not Detected Acetaminophen < 17 Ur Barbiturates Screen Not Detected Ur Phencyclidine Scrn Not Detected Ur Amphetamines Screen Not Detected U Benzodiazepines Scrn Not Detected Urine Cocaine Screen Not Detected U Marijuana (THC) Screen Not Detected Ethyl Alcohol 52 COVID-19 (MARGARET) COVID-19 [employer] 05/21/22 05/21/22 05/22/22 11:49 21:07 08:37 WBC RBC Hgb Hct MCV MCH MCHC RDW Plt Count MPV Immature Gran % (Auto) Neut % (Auto) Lymph % (Auto) Fleming % (Auto) Eos % (Auto) Baso % (Auto) Lymph # (Auto) Fleming # (Auto) Eos # (Auto) Baso # (Auto) Abs Immat Gran (auto) Absolute Neuts (auto) Absolute Nucleated RBC Nucleated RBC % (auto) Smear Tech's Comments Sodium Potassium Chloride Carbon Dioxide Anion Gap BUN Creatinine Estim Creat Clear Calc Estimated GFR POC Glucose 110 164 H Random Glucose Estimat Average Glucose 134 Hemoglobin A1c % 6.3 Calcium Magnesium Total Bilirubin AST ALT Alkaline Phosphatase Total Protein Albumin Triglycerides Cholesterol LDL Cholesterol, Calc HDL Cholesterol Vitamin B12 Folate TSH Free T4 Urine Color Urine Appearance Urine pH Ur Specific [place] Urine Protein Urine Glucose (UA) Urine Ketones Urine Blood Urine Nitrite Ur Leukocyte Esterase Salicylates Urine Opiates Screen Urine Fentanyl Screen Acetaminophen Ur Barbiturates Screen Ur Phencyclidine Scrn Ur Amphetamines Screen U Benzodiazepines Scrn Urine Cocaine Screen U Marijuana (THC) Screen Ethyl Alcohol COVID-19 (MARGARET) COVID-19 [employer] 05/22/22 05/22/22 08:37 09:11 WBC RBC Hgb Hct MCV MCH MCHC RDW Plt Count MPV Immature Gran % (Auto) Neut % (Auto) Lymph % (Auto) Fleming % (Auto) Eos % (Auto) Baso % (Auto) Lymph # (Auto) Fleming # (Auto) Eos # (Auto) Baso # (Auto) Abs Immat Gran (auto) Absolute Neuts (auto) Absolute Nucleated RBC Nucleated RBC % (auto) Smear Tech's Comments Sodium Potassium Chloride Carbon Dioxide Anion Gap BUN Creatinine Estim Creat Clear Calc Estimated GFR POC Glucose 108 Random Glucose Estimat Average Glucose Hemoglobin A1c % Calcium Magnesium 1.8 Total Bilirubin AST ALT Alkaline Phosphatase Total Protein Albumin Triglycerides 100 Cholesterol 178 LDL Cholesterol, Calc 127 HDL Cholesterol 31 Vitamin B12 459 Folate 10.6 TSH 2.79 Free T4 0.96 Urine Color Urine Appearance Urine pH Ur Specific [place] Urine Protein Urine Glucose (UA) Urine Ketones Urine Blood Urine Nitrite Ur Leukocyte Esterase Salicylates Urine Opiates Screen Urine Fentanyl Screen Acetaminophen Ur Barbiturates Screen Ur Phencyclidine Scrn Ur Amphetamines Screen U Benzodiazepines Scrn Urine Cocaine Screen U Marijuana (THC) Screen Ethyl Alcohol COVID-19 (MARGARET) COVID-19 Clin Com Meds/Allergies Meds Home Medications Medication Instructions Recorded Confirmed Type atorvastatin 10 mg tablet 10 mg PO DAILY 05/21/22 05/21/22 History metformin 500 mg tablet 500 mg PO BID 05/21/22 05/21/22 History triamcinolone acetonide 0.5 % 1 appl topical BEDTIME 05/21/22 05/21/22 History topical ointment Allergies Allergies Allergy/AdvReac Type Severity Reaction Status Date / Time shellfish derived Allergy Unknown NAUSEA & Verified 12/09/21 22:57 [SHELLFISH DERIVED] VOMITING Mental Status Exam Mental Status Exam Narrative: Pt is alert and oriented; behavior is cooperative, calm; patient is not in distress, uses walker; dressed in hospital attire with unkempt hair and scruffy; mood is described as bitter and affect congruent; eye contact appropriate; Speech is normal rate, volume and prosody and not pressured; no psychomotor agitation/retardation present; thought process is organized and goal directed; Thought content is on tx; otherwise pertinent to relevant topics and without any delusional content, paranoid ideations or grandiosity; denies any SI/HI. There is no evidence of perceptual disturbance. Patients insight and judgment appear intact. Assessment & Plan Assessment & Plan (1) Adjustment disorder with mixed disturbance of emotions and conduct: Status: Acute Code(s): F43.25 - Adjustment disorder with mixed disturbance of emotions and conduct (2) Cerebral palsy: Status: Acute Code(s): G80.9 - Cerebral palsy, unspecified (3) Diabetes: Status: Acute Code(s): E11.9 - Type 2 diabetes mellitus without complications Plan Pt is a 52 yo male with hx of Depression, cerebral palsy, diabetes with diabetic neuropathy who presents for homicidal and suicidal ideation in the face of relational strife. Patient is very angry at his brother for stealing what he believes is his half of the inheritance. Patient said that when he found out, he was in a drunken rage and made homicidal statements. He thought better of it, not wanting to leave his nephews father less and called crisis/911 to get him to the hospital for stability. Patient reports that he is not going to hurt his brother and that the HI has resolved. Denies any SI. Denies history of HI or aggressive behavior. He plans to go to stay with family in [place] following jacob hayden. Patient denies psychiatric symptoms and does not want medications. -admit for observation and to demonstrate stability. Will also get collateral. Plan: 3 day notice Q 15 minute checks Patient uses walker Continue home medication Restart baclofen 10 mg t.i.d. p.r.n. Patient educated on: diagnosis, medication risk/benefits and medical condition Informed Consent: understands Reason for continued inpatient stay Substantial Risk for: harm to self, harm to others and rapid decompensation Statement Statement: I have reviewed the history and physical and performed a pertinent examination on my patient. No changes have occurred unless specified. If the History and Physical was not performed prior to admission, the Hospitalist's service will be consulted for completing the admission physical. Time Spent With Patient Time: Total time managing care of this patient today ____ minutes.
[2022-05-22] MEDS: Acetaminophen 325 MG TABLET 650 MG PO (16:12)
[2022-05-22] MEDS: Baclofen 10 MG TABLET PO (16:12)
[2022-05-22 18:00] VITALS: BP 148/86; PULSE 115; RESP 16; TEMP 36.6; O2SAT 98
[2022-05-22 18:28] LABS: Glucose, Whole Blood 160 mg/dL (60-115)
--- NOTE | 2022-05-22 19:39 | PC.NURSE ---
Pt is alert and oriented X4. Pt is ambulating with a walker, seen in group room B sitting on the floor. Pt reports he fell on his hips while trying to get out of his chair. He reports 10/10 pain. Vital signs stable. Avionics Systems Engineer provider Keysha Barton notified, TO order for hospitalist consult given and completed. Order for a wheelchair and medical bed given.
[2022-05-22] MEDS: NaPROXEN 500 MG TABLET PO (20:31)
[2022-05-23] MEDS: Acetaminophen 325 MG TABLET 650 MG PO ×2 (00:36→14:35)
[2022-05-23] MEDS: traZODone HCL 50 MG TABLET PO ×2 (00:37→02:05)
[2022-05-23] MEDS: Baclofen 10 MG TABLET PO ×3 (00:37→18:57)
[2022-05-23] MEDS: Lidocaine 4 % Patch ADH..PATCH 1 PATCH TRANSDERMA ×2 (02:04→10:16)
[2022-05-23 02:17] LABS: Glucose, Whole Blood 101 mg/dL (60-115)
[2022-05-23] MEDS: hydrOXYzine HCL 25 MG TABLET PO (02:24)
[2022-05-23 08:19] VITALS: BP 146/86; PULSE 117; RESP 16; TEMP 36.7; O2SAT 97
[2022-05-23] MEDS: Atorvastatin Calcium 10 MG TABLET PO (08:26)
[2022-05-23] MEDS: metFORMIN HCl 500 MG TABLET PO ×2 (08:26→19:46)
[2022-05-23] MEDS: Nicotine 21 MG PATCH.TD24 TRANSDERMA (08:26)
--- NOTE | 2022-05-23 10:09 | HO.PSYCHPN ---
Subjective Subjective Date of Service: 05/23/22 Reason For Visit: Depression with Si/Hi Subjective Notes: Conditional Voluntary Healthcare Proxy: No Guardianship: No Medical Problems Affecting Mental Status: Yes (Chronic back pain) Interim History: Patient was seen and discussed in rounds today. Records and plans were reviewed. He was very outspoken about his dismay about his care here. He was happy that Dr. Quinn was able to advocate for him to get a hospital bed. He has been visible but does come out of his room and has been social with others. He is mostly pleasant. He does exhibit some self dialogue. He states that the lidocaine patch has helpful but would look forward to seeing a doctor for his back pain CIWA protocol no changes were made today Review of Systems Review of Systems Constitutional : No Weight loss, No Fever, No Chills, No Night Sweats, No Fatigue, No Malaise ENT/Mouth : No Hearing loss, No Ear Pain, No Nasal Congestion, No Sinus Pain, No Hoarseness, No sore throat, No Rhinorrhea, No Swallowing Difficulty Eyes: No Eye Pain, No Swelling, No Redness, No Foreign Body, No Discharge, No Vision Changes Cardiovascular : No Chest Pain, No SOB, No Dyspnea on Exertion, No Orthopnea, No Edema, No Palpitations Respiratory : No Cough, No Sputum, No Wheezing, No Smoke Exposure, No Dyspnea Gastrointestinal : No Nausea, No Vomiting, No Diarrhea, No Constipation, No abdominal Pain, No Hematochezia, No Melena Genitourinary : no irregular bleeding, No Dysuria, No Urinary Frequency, No Hematuria, No Urinary Incontinence, No Urgency, No Flank Pain, No Urinary Flow Changes, No Hesitancy Musculoskeletal : No joint pain, No Myalgias, No Joint Swelling Skin : No Skin Lesions, No rash Neuro : No Weakness, No Numbness, No Paresthesias, No Loss of Consciousness, No Dizziness, No Headache Psych : Complain of feeling angry, depressed, suicidal and homicidal towards his brother Heme/Lymph: No Bruising, No Bleeding,No Lymphadenopathy Endocrine : No Polyuria, No Polydipsia, No Temperature Intolerance Mental Status Exam Mental Status Exam Narrative: In today's visit he is alert it could or in today's and pleasant. No major speech impediment. Good eye contact. Affect is irritable, angry but in control. No overt signs of psychosis but has been observed to respond to internal stimuli, self dialogue. No overt delusions. He denies active suicidal ideations. Cognitively is intact. Judgment is intact Diagnostics Vital Signs (24Hr): Vital Signs - 24 hr 05/22/22 18:00 05/23/22 08:19 Temperature 97.8 F 98.1 F Pulse Rate 115 H 117 H Respiratory Rate 16 16 Blood Pressure 148/86 H 146/86 H Pulse Oximetry 98 97 Oxygen Delivery Method Room Air Room Air BMI result Body Mass Index 33.9 Labs 05/21/22 03:15 05/21/22 03:15 Labs: Laboratory Results - last 48 hr 05/21/22 05/21/22 05/22/22 11:49 21:07 08:37 POC Glucose 110 164 H Estimat Average Glucose 134 Hemoglobin A1c % 6.3 Magnesium Triglycerides Cholesterol LDL Cholesterol, Calc HDL Cholesterol Vitamin B12 Folate TSH Free T4 05/22/22 05/22/22 05/22/22 08:37 09:11 18:20 POC Glucose 108 160 H Estimat Average Glucose Hemoglobin A1c % Magnesium 1.8 Triglycerides 100 Cholesterol 178 LDL Cholesterol, Calc 127 HDL Cholesterol 31 Vitamin B12 459 Folate 10.6 TSH 2.79 Free T4 0.96 05/23/22 02:14 POC Glucose 101 Estimat Average Glucose Hemoglobin A1c % Magnesium Triglycerides Cholesterol LDL Cholesterol, Calc HDL Cholesterol Vitamin B12 Folate TSH Free T4 Imaging Radiology Impressions: ITS Impressions Femur X-Ray 05/22/22 21:38 IMPRESSION: No fracture. Femur X-Ray 05/22/22 21:38 IMPRESSION: No fracture. Hip/Pelvis X-Ray 05/22/22 21:38 IMPRESSION: No fracture. Head CT 05/22/22 21:45 IMPRESSION: No acute intracranial abnormality including hemorrhage, mass effect, hydrocephalus, or acute territorial edematous infarction. Medications Medications Current Medications Acetaminophen (Acetaminophen 325 Mg Tablet) 650 mg PO Q6H PRN PRN Reason: Headache/Pain Mild Scale (1-3) Last Admin: 05/23/22 00:36 Dose: 650 mg Al Hydroxide/Mg Hydroxide (Magnesium Hydrox/Alum Hydrox 30 Ml Oral.Susp) 30 ml PO Q6H PRN PRN Reason: Heartburn/Nausea Atorvastatin Calcium (Atorvastatin Calcium 10 Mg Tablet) 10 mg PO DAILY GIANCARLO Last Admin: 05/23/22 08:26 Dose: 10 mg Baclofen (Baclofen 10 Mg Tablet) 10 mg PO TID PRN PRN Reason: muscle aches Last Admin: 05/23/22 08:27 Dose: 10 mg Hydroxyzine HCl (Hydroxyzine Hcl 25 Mg Tablet) 25 mg PO Q6H PRN PRN Reason: Anxiety Last Admin: 05/23/22 02:24 Dose: 25 mg Lidocaine (Lidocaine 4 % Patch Adh..Patch) 1 patch TRANSDERMA DAILY [facility]; Protocol Last Admin: 05/23/22 02:04 Dose: 1 patch Lorazepam (Lorazepam 1 Mg Tablet) 1 mg PO Q6H PRN PRN Reason: anxiety, agitation Magnesium Hydroxide (Milk Of Magnesia 30 Ml Oral.Susp) 30 ml PO DAILY PRN PRN Reason: Constipation Metformin HCl (Metformin Hcl 500 Mg Tablet) 500 mg PO BID [facility] Last Admin: 05/23/22 08:26 Dose: 500 mg Naproxen (Naproxen 500 Mg Tablet) 500 mg PO BID PRN PRN Reason: Pain, Moderate (Pain Scale 4-6 Last Admin: 05/22/22 20:31 Dose: 500 mg Nicotine (Nicotine 21 Mg Patch.Td24) 21 mg TRANSDERMA DAILY [facility] Last Admin: 05/23/22 08:26 Dose: 21 mg Nicotine Polacrilex (Nicotine Polacrilex 2 Mg Gum) 4 mg BUCCAL Q2H PRN PRN Reason: Nicotine Cravings Last Admin: 05/22/22 15:28 Dose: 4 mg Pharmacy Consult (Consult Rx Perform Med Rec) 1 each MISCELLANE ONCE PRN PRN Reason: Consult order Trazodone HCl (Trazodone Hcl 50 Mg Tablet) 50 mg PO BEDTIME MRX1 PRN PRN Reason: Insomnia Last Admin: 05/23/22 02:05 Dose: 50 mg Triamcinolone Acetonide (Triamcinolone Acet 0.5 % Oint 15 Gm Tube) 1 appl TOPICAL BEDTIME [facility] Last Admin: 05/22/22 20:27 Dose: Not Given Allergies Allergies Allergy/AdvReac Type Severity Reaction Status Date / Time shellfish derived Allergy Unknown NAUSEA & Verified 12/09/21 22:57 [SHELLFISH DERIVED] VOMITING Assessment & Plan Assessment & Plan (1) Adjustment disorder with mixed disturbance of emotions and conduct: Status: Acute Code(s): F43.25 - Adjustment disorder with mixed disturbance of emotions and conduct (2) Cerebral palsy: Status: Acute Code(s): G80.9 - Cerebral palsy, unspecified (3) Diabetes: Status: Acute Code(s): E11.9 - Type 2 diabetes mellitus without complications Plan Pt is a 52 yo male with hx of Depression, cerebral palsy, diabetes with diabetic neuropathy who presents for homicidal and suicidal ideation in the face of relational strife. Patient is very angry at his brother for stealing what he believes is his half of the inheritance. Patient said that when he found out, he was in a drunken rage and made homicidal statements. He thought better of it, not wanting to leave his nephews father less and called crisis/911 to get him to the hospital for stability. Patient reports that he is not going to hurt his brother and that the HI has resolved. Denies any SI. Denies history of HI or aggressive behavior. He plans to go to stay with family in [place] following discharge. Patient denies psychiatric symptoms and does not want medications. -admit for observation and to demonstrate stability. Will also get collateral. 05/23: Continue current regimen and plans Plan: 3 day notice Q 15 minute checks Patient uses walker Continue home medication Restart baclofen 10 mg t.i.d. p.r.n. Patient educated on: medication risk/benefits Reason for contiued inpatient stay Substantial Risk for: med/psych decompensation Time Spent With Patient Time: Total time managing care of this patient today ____ minutes.
[2022-05-23 10:10] LABS: Glucose, Whole Blood 141 mg/dL (60-115)
--- NOTE | 2022-05-23 10:10 | PC.NURSE ---
pt approached this functional tester typewriters to make a complaint how he did not want a 1:1 while he was in group room b in the medical bed. i explained that its a ligature risk and we need to make sure people are safe. he stated he would not hurt himself. i told him the staff did not need to be in the room but could sit outside the room as long as he could be seen. he did not like the answer. stated you are making it hard to not be pissed off . was able to use some humor. came again to this functional tester typewriters that he did not like his breakfast as he is not tolerating a fucking diabetic diet here as he isn't getting enough food. regular diet ordered. pt requesting a print out of all hospital policies to be given to him. pt aware this is not allowed and stated he was going to make a complaint. pt again stating he wanted to make a complaint the hospital is not handicapped accessible and that the safety heavy chairs are too hard. pt given pillows to make them more comfortable. pt also stating we wanted to go to the ER as when he has pain he goes to the ER and they usually give him a shot with a pain med. upset stated he was not seen by a medical doctor after his fall last evening and wants pain meds and a lidocaine patch was already ordered but did not want it until he had a shower. . hospitalist was notified last evening post fall. . pt ambulating and able to push heavy chairs for others (females) to sit in without difficulty. pt approached this functional tester typewriters to state just so you are aware i am making waves for all of you and you should be getting a call soon. i asked from who, he stated the nursing recycling crew supervisor. received phone call from tyra the nursing recycling crew supervisor and we reviewed the complaints and how or if we could further assist. pt also stated he would like to shower and which staff member he would to help him in a sexual innapropriate way, i would pick you if i wanted a female to shower me as all female staff today but requested a male staff so we asked the male staff person from to assist and he did. pt continues with multiple requests.
--- NOTE | 2022-05-23 11:18 | PC.NURSE ---
fresh air break offered to all patients. pt came to this copy writer stating again he cannot enjoy the things the others are because he reports there is not a ramp for him to get up the 2 stairs into the fresh air break. i offered to have 2 staff help him up the 2 stairs so he could enjoy the fresh air break. he refused stating that wasn't the point . Pt asked if i have documenting his concerns, i told him i have. i told him i would pass along all of his concerns to the hospital administration for Wednesday. he reported Not only them but for a lawsuit as well.
[2022-05-23] MEDS: NaPROXEN 500 MG TABLET PO (12:06)
--- NOTE | 2022-05-23 12:08 | PC.NURSE ---
Dr Ramírez contacted via [employer] for fall/hip consult 05/23/22 @ 12:01 for fall/hip consult. Was instructed to contact Dr Roth. Matthew notified via [employer] @ 12:04 and
--- NOTE | 2022-05-23 14:31 | P.EN_ITS ---
Event Note Date of Service: 05/23/22 Event Note: Discussed case with psych attending provider. Patient had fall overnight with pain to hip. Tone Artist Apprentice ordered imaging studies including head CT and hip xray, all negative, Psych attending ordered pain medication and lidocaine patch. No further assessment needed at this time Time Spent With Patient Time: Total time managing care of this patient today ____ minutes.
[2022-05-23] MEDS: Nicotine Polacrilex 2 MG GUM 4 MG BUCCAL ×2 (14:36→17:13)
--- NOTE | 2022-05-23 14:38 | PC.NURSE ---
pt came to med window to get prn. stated i gave you guys enough fun for today, i want to save some fun for the next shift. pt requesting communion for tomorrow. pt aware we will assist in the morning when/if lasting machine operator arrives. if not, we can assist him with calling his roman catholic to request communion.
[2022-05-23 16:53] VITALS: BP 133/87; PULSE 120; RESP 16; TEMP 35.7; O2SAT 95
--- NOTE | 2022-05-23 17:45 | PC.NURSE ---
Pt is persistent about seeing the hospitalist. Gaming Investigator is aware.
--- NOTE | 2022-05-23 18:00 | PC.NURSE ---
Pt is seen sitting on the floor. He reports falling on his knees. RN offered to take vitals; Pt refuses saying, I am fine, I don't need vitals, I am falling because i have not been seen by the doctor. Pt got up and walked back into his room saying, I don,t like to be on 1:1 that is why i don't want to stay in bed. Pt is not happy about not being seen by the hospitalist. on call provider Eran notified.
[2022-05-23 19:53] LABS: Glucose, Whole Blood 130 mg/dL (60-115)
[2022-05-23] MEDS: Triamcinolone Acet 0.5 % Oint 15 GM TUBE 1 APPL TOPICAL (19:53)
[2022-05-24] MEDS: Baclofen 10 MG TABLET PO (00:15)
[2022-05-24] MEDS: traZODone HCL 50 MG TABLET PO (00:15)
[2022-05-24] MEDS: Acetaminophen 325 MG TABLET 650 MG PO (00:15)
[2022-05-24] MEDS: Milk of Magnesia 30 ML ORAL.SUSP PO (00:16)
[2022-05-24] MEDS: Nicotine Polacrilex 2 MG GUM 4 MG BUCCAL ×3 (00:36→23:56)
[2022-05-24] MEDS: Atorvastatin Calcium 10 MG TABLET PO (09:59)
[2022-05-24] MEDS: Nicotine 21 MG PATCH.TD24 TRANSDERMA (09:59)
[2022-05-24] MEDS: metFORMIN HCl 500 MG TABLET PO ×2 (09:59→21:20)
[2022-05-24 10:10] VITALS: BP 140/89; PULSE 97; RESP 16; TEMP 37.1; O2SAT 97
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
[2022-05-24 10:18] LABS: Glucose, Whole Blood 112 mg/dL (60-115)
--- NOTE | 2022-05-24 10:44 | PC.NURSE ---
10:00 05/23/22 During morning med pass when pt was asked if they were in any pain, pt reports, Im doing great today. NO pain. I don't need my lidocaine patch or any pain meds, I feel pretty good
[2022-05-24] MEDS: Lidocaine 4 % Patch ADH..PATCH 1 PATCH TRANSDERMA (11:57)
--- NOTE | 2022-05-24 12:10 | PC.NURSE ---
Pt talking to peer in front of nurses station. Pt placed glasses on top of nurses station and parked walker along the wall. Pt then proceeded to lower himself to his knees and then buttocks. At this point pt began yelling he had fallen, stating he had a back spasm. Pt was unaware staff had witnessed this. Pt declined all offers of help of getting off the floor stating No offense but I dont trust you to help me, you cant even get a doctor to see me (referring to hospitalist consult). Pts vitals 148/91, 98, 98%. Pt got himself off floor and into chair without assistance. Pt asking for lidocaine patch, applied. Dr. Barillas notified.
--- NOTE | 2022-05-24 13:58 | P.EN_ITS ---
Event Note Date of Service: 05/24/22 Event Note: Follow-up. Discussed case with nursing research animal facility supervisor, apparently patient had been falling on purpose because he has has not been seen by a medical provider. It was reiterated that the patient had all necessary diagnostic imaging studies after his fall 2 days ago. All imaging studies were negative. The patient was then seen and examined Today, not found to have any acute medical issues. History of chronic cerebral palsy with multiple falls in the past and imaging studies. Patient requested to have his baclofen increased for which this was denied. Patient was ordered lidocaine patch and Naprosyn for any acute pain that he may have. Patient became irate and wheeled out of the room in his wheelchair when told that he had fallen on purpose. Began screaming profanities in the hallway But was able to be redirected by nursing staff. At this time there is no further for any other workup at this time. Time Spent With Patient Time: Total time managing care of this patient today ____ minutes.
--- NOTE | 2022-05-24 14:16 | PC.NURSE ---
pt made several requests during day shift for a shower chair. Shower chair was obtained from another unit for pt use. Nurse then instructed pt that if they wanted to shower that the nurse would be available for 1:1 in order to do so, due to ligature risk. Pt refused and then stated they would wait for male staff on second shift.
[2022-05-24 17:05] VITALS: BP 143/77; PULSE 102; TEMP 36.4
--- NOTE | 2022-05-24 19:03 | PC.NURSE ---
Incident report filed for fall on day shift as it was not done . Report # [id number]
[2022-05-24] MEDS: Triamcinolone Acet 0.5 % Oint 15 GM TUBE 1 APPL TOPICAL (21:21)
[2022-05-24 22:23] LABS: Glucose, Whole Blood 131 mg/dL (60-115)
[2022-05-25] MEDS: Nicotine Polacrilex 2 MG GUM 4 MG BUCCAL (02:01)
[2022-05-25] MEDS: traZODone HCL 50 MG TABLET PO (02:02)
[2022-05-25] MEDS: LORazepam 1 MG TABLET PO (04:05)
[2022-05-25] MEDS: Acetaminophen 325 MG TABLET 650 MG PO (05:17)
[2022-05-25] MEDS: Baclofen 10 MG TABLET PO (05:17)
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
[2022-05-25] MEDS: LORazepam 2 MG/ML VIAL IM (08:04)
[2022-05-25 08:05] VITALS: BP 117/66; PULSE 86; RESP 16; TEMP 36.7; O2SAT 98
[2022-05-25] MEDS: Benztropine Mesylate 2 MG/2 ML VIAL 1 MG IM (08:05)
[2022-05-25] MEDS: Haloperidol Lactate 5 MG/ML VIAL IM (08:06)
--- NOTE | 2022-05-25 09:08 | PM.EVENT ---
Event Note Date of Service: 05/25/22 Event Note: After receiving the physical and chemical restraint he settled down and was brought out of restraints shortly after going to bed. His vital signs are stable. He is sleeping in bed and continues to be on !:! Time Spent With Patient Time: Total time managing care of this patient today _10___ minutes.
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
--- NOTE | 2022-05-25 14:28 | PC.NURSE ---
pt verbalized intent to leave on 3day notice. , SUSIE, and UR aware. Copy in Chart
[2022-05-25] MEDS: Triamcinolone Acet 0.5 % Oint 15 GM TUBE 1 APPL TOPICAL (21:21)
[2022-05-25] MEDS: metFORMIN HCl 500 MG TABLET PO (21:30)
[2022-05-26] MEDS: Nicotine Polacrilex 2 MG GUM 4 MG BUCCAL ×4 (06:23→21:11)
[2022-05-26] MEDS: Baclofen 10 MG TABLET PO ×2 (06:23→21:11)
[2022-05-26] MEDS: Nicotine 21 MG PATCH.TD24 TRANSDERMA (06:23)
[2022-05-26] MEDS: Atorvastatin Calcium 10 MG TABLET PO (08:05)
[2022-05-26] MEDS: metFORMIN HCl 500 MG TABLET PO ×2 (08:05→21:11)
[2022-05-26 08:20] VITALS: BP 127/89; PULSE 94; RESP 18; TEMP 36.3; O2SAT 98
[2022-05-26 08:41] LABS: Glucose, Whole Blood 89 mg/dL (60-115)
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
[2022-05-26 17:44] VITALS: BP 137/75; PULSE 106; RESP 16; TEMP 36.2; O2SAT 97
--- NOTE | 2022-05-26 19:05 | PM.PSYDC ---
DS: Providers Provider Date of Service: 05/27/22 Date of admission: 05/21/22 18:26 Date of discharge: 05/27/22 Primary care physician: Unknown Physician Attending physician on admission: Miguel A Chau Consults: 05/22/22 20:00 Consult to Hospitalist Stat Consulting Provider: Hospitalist Reason For Exam: Fall/ hx of chronic hip pain. Attending physician on discharge: Miguel A Cahu DS: Diagnosis Discharge Diagnosis (1) Adjustment disorder with mixed disturbance of emotions and conduct: Status: Acute (2) Cerebral palsy: Status: Acute (3) Diabetes: Status: Acute DS: Medications Discharge Medications Home Medications: Home Medications Medication Instructions Recorded Confirmed atorvastatin 10 mg tablet 10 mg PO DAILY 05/21/22 05/21/22 metformin 500 mg tablet 500 mg PO BID 05/21/22 05/21/22 triamcinolone acetonide 0.5 % 1 appl topical BEDTIME 05/21/22 05/21/22 topical ointment Mental Status Exam Mental Status Exam Narrative: Pt is alert and oriented; behavior is cooperative, calm; patient is not in distress, using a wheel chair; dressed in casual attire with unkempt hair, scruffy; mood is described as good and affect congruent; eye contact appropriate; Speech is normal rate, volume and prosody and not pressured; no psychomotor agitation/retardation present; thought process is organized and goal directed; Thought content is on discharge; otherwise pertinent to relevant topics and without any delusional content, paranoid ideations or grandiosity; denies any SI/HI. There is no evidence of perceptual disturbance. Patients insight and judgment are intact. Data Data Completed and Pending Completed studies during hospitalization [Text1]: 05/21/22 05/21/22 05/21/22 03:10 03:15 03:15 WBC 11.5 H RBC 5.22 Hgb 15.6 Hct 45.7 MCV 87.5 MCH 29.9 MCHC 34.1 RDW 13.1 Plt Count 206 MPV 10.5 Immature Gran % (Auto) 0.3 Neut % (Auto) 68.6 Lymph % (Auto) 21.4 Shelby % (Auto) 8.4 Eos % (Auto) 1.0 Baso % (Auto) 0.3 Lymph # (Auto) 2.5 Shelby # (Auto) 1.0 Eos # (Auto) 0.1 Baso # (Auto) 0.0 Abs Immat Gran (auto) 0.04 H Absolute Neuts (auto) 7.9 Absolute Nucleated RBC 0.000 Nucleated RBC % (auto) 0.0 Smear Tech's Comments VERIFIED Sodium 141 Potassium 4.1 Chloride 108 Carbon Dioxide 19 L Anion Gap 18 BUN 13 Creatinine 0.76 Estim Creat Clear Calc 107.5 Estimated GFR > 60 POC Glucose Random Glucose 92 Estimat Average Glucose Hemoglobin A1c % Calcium 9.4 Magnesium Total Bilirubin 0.4 AST 19 ALT 39 Alkaline Phosphatase 66 Total Protein 7.1 Albumin 4.4 Triglycerides Cholesterol LDL Cholesterol, Calc HDL Cholesterol Vitamin B12 Folate TSH Free T4 Urine Color Urine Appearance Urine pH Ur Specific [place] Urine Protein Urine Glucose (UA) Urine Ketones Urine Blood Urine Nitrite Ur Leukocyte Esterase Salicylates Urine Opiates Screen Urine Fentanyl Screen Acetaminophen Ur Barbiturates Screen Ur Phencyclidine Scrn Ur Amphetamines Screen U Benzodiazepines Scrn Urine Cocaine Screen U Marijuana (THC) Screen Ethyl Alcohol COVID-19 (MARGARET) Negative COVID-19 Clin Com See Note 05/21/22 05/21/22 05/21/22 03:15 04:13 04:13 WBC RBC Hgb Hct MCV MCH MCHC RDW Plt Count MPV Immature Gran % (Auto) Neut % (Auto) Lymph % (Auto) Shelby % (Auto) Eos % (Auto) Baso % (Auto) Lymph # (Auto) [place] # (Auto) Eos # (Auto) Baso # (Auto) Abs Immat Gran (auto) Absolute Neuts (auto) Absolute Nucleated RBC Nucleated RBC % (auto) Smear Tech's Comments Sodium Potassium Chloride Carbon Dioxide Anion Gap BUN Creatinine Estim Creat Clear Calc Estimated GFR POC Glucose Random Glucose Estimat Average Glucose Hemoglobin A1c % Calcium Magnesium Total Bilirubin AST ALT Alkaline Phosphatase Total Protein Albumin Triglycerides Cholesterol LDL Cholesterol, Calc HDL Cholesterol Vitamin B12 Folate TSH Free T4 Urine Color Yellow Urine Appearance Clear Urine pH 5.5 Ur Specific [place] 1.010 Urine Protein Negative Urine Glucose (UA) Negative Urine Ketones Trace Urine Blood Negative Urine Nitrite Negative Ur Leukocyte Esterase Negative Salicylates < 5.0 L Urine Opiates Screen Not Detected Urine Fentanyl Screen Not Detected Acetaminophen < 17 Ur Barbiturates Screen Not Detected Ur Phencyclidine Scrn Not Detected Ur Amphetamines Screen Not Detected U Benzodiazepines Scrn Not Detected Urine Cocaine Screen Not Detected U Marijuana (THC) Screen Not Detected Ethyl Alcohol 52 COVID-19 (MARGARET) COVID-19 Clin Com 05/21/22 05/21/22 05/22/22 11:49 21:07 08:37 WBC RBC Hgb Hct MCV MCH MCHC RDW Plt Count MPV Immature Gran % (Auto) Neut % (Auto) Lymph % (Auto) Shelby % (Auto) Eos % (Auto) Baso % (Auto) Lymph # (Auto) [place] # (Auto) Eos # (Auto) Baso # (Auto) Abs Immat Gran (auto) Absolute Neuts (auto) Absolute Nucleated RBC Nucleated RBC % (auto) Smear Tech's Comments Sodium Potassium Chloride Carbon Dioxide Anion Gap BUN Creatinine Estim Creat Clear Calc Estimated GFR POC Glucose 110 164 H Random Glucose Estimat Average Glucose 134 Hemoglobin A1c % 6.3 Calcium Magnesium Total Bilirubin AST ALT Alkaline Phosphatase Total Protein Albumin Triglycerides Cholesterol LDL Cholesterol, Calc HDL Cholesterol Vitamin B12 Folate TSH Free T4 Urine Color Urine Appearance Urine pH Ur Specific [place] Urine Protein Urine Glucose (UA) Urine Ketones Urine Blood Urine Nitrite Ur Leukocyte Esterase Salicylates Urine Opiates Screen Urine Fentanyl Screen Acetaminophen Ur Barbiturates Screen Ur Phencyclidine Scrn Ur Amphetamines Screen U Benzodiazepines Scrn Urine Cocaine Screen U Marijuana (THC) Screen Ethyl Alcohol COVID-19 (MARGARET) COVID-19 Clin Com 05/22/22 05/22/22 05/22/22 08:37 09:11 18:20 WBC RBC Hgb Hct MCV MCH MCHC RDW Plt Count MPV Immature Gran % (Auto) Neut % (Auto) Lymph % (Auto) [place] % (Auto) Eos % (Auto) Baso % (Auto) Lymph # (Auto) [place] # (Auto) Eos # (Auto) Baso # (Auto) Abs Immat Gran (auto) Absolute Neuts (auto) Absolute Nucleated RBC Nucleated RBC % (auto) Smear Tech's Comments Sodium Potassium Chloride Carbon Dioxide Anion Gap BUN Creatinine Estim Creat Clear Calc Estimated GFR POC Glucose 108 160 H Random Glucose Estimat Average Glucose Hemoglobin A1c % Calcium Magnesium 1.8 Total Bilirubin AST ALT Alkaline Phosphatase Total Protein Albumin Triglycerides 100 Cholesterol 178 LDL Cholesterol, Calc 127 HDL Cholesterol 31 Vitamin B12 459 Folate 10.6 TSH 2.79 Free T4 0.96 Urine Color Urine Appearance Urine pH Ur Specific [place] Urine Protein Urine Glucose (UA) Urine Ketones Urine Blood Urine Nitrite Ur Leukocyte Esterase Salicylates Urine Opiates Screen Urine Fentanyl Screen Acetaminophen Ur Barbiturates Screen Ur Phencyclidine Scrn Ur Amphetamines Screen U Benzodiazepines Scrn Urine Cocaine Screen U Marijuana (THC) Screen Ethyl Alcohol COVID-19 (MARGARET) COVID-19 MagTag 05/23/22 05/23/22 05/23/22 02:14 10:06 19:50 WBC RBC Hgb Hct MCV MCH MCHC RDW Plt Count MPV Immature Gran % (Auto) Neut % (Auto) Lymph % (Auto) [place] % (Auto) Eos % (Auto) Baso % (Auto) Lymph # (Auto) [place] # (Auto) Eos # (Auto) Baso # (Auto) Abs Immat Gran (auto) Absolute Neuts (auto) Absolute Nucleated RBC Nucleated RBC % (auto) Smear Tech's Comments Sodium Potassium Chloride Carbon Dioxide Anion Gap BUN Creatinine Estim Creat Clear Calc Estimated GFR POC Glucose 101 141 H 130 H Random Glucose Estimat Average Glucose Hemoglobin A1c % Calcium Magnesium Total Bilirubin AST ALT Alkaline Phosphatase Total Protein Albumin Triglycerides Cholesterol LDL Cholesterol, Calc HDL Cholesterol Vitamin B12 Folate TSH Free T4 Urine Color Urine Appearance Urine pH Ur Specific [place] Urine Protein Urine Glucose (UA) Urine Ketones Urine Blood Urine Nitrite Ur Leukocyte Esterase Salicylates Urine Opiates Screen Urine Fentanyl Screen Acetaminophen Ur Barbiturates Screen Ur Phencyclidine Scrn Ur Amphetamines Screen U Benzodiazepines Scrn Urine Cocaine Screen U Marijuana (THC) Screen Ethyl Alcohol COVID-19 (MARGARET) COVID-19 MagTag 05/24/22 05/24/22 05/26/22 10:09 21:13 08:37 WBC RBC Hgb Hct MCV MCH MCHC RDW Plt Count MPV Immature Gran % (Auto) Neut % (Auto) Lymph % (Auto) [place] % (Auto) Eos % (Auto) Baso % (Auto) Lymph # (Auto) [place] # (Auto) Eos # (Auto) Baso # (Auto) Abs Immat Gran (auto) Absolute Neuts (auto) Absolute Nucleated RBC Nucleated RBC % (auto) Smear Tech's Comments Sodium Potassium Chloride Carbon Dioxide Anion Gap BUN Creatinine Estim Creat Clear Calc Estimated GFR POC Glucose 112 131 H 89 Random Glucose Estimat Average Glucose Hemoglobin A1c % Calcium Magnesium Total Bilirubin AST ALT Alkaline Phosphatase Total Protein Albumin Triglycerides Cholesterol LDL Cholesterol, Calc HDL Cholesterol Vitamin B12 Folate TSH Free T4 Urine Color Urine Appearance Urine pH Ur Specific [place] Urine Protein Urine Glucose (UA) Urine Ketones Urine Blood Urine Nitrite Ur Leukocyte Esterase Salicylates Urine Opiates Screen Urine Fentanyl Screen Acetaminophen Ur Barbiturates Screen Ur Phencyclidine Scrn Ur Amphetamines Screen U Benzodiazepines Scrn Urine Cocaine Screen U Marijuana (THC) Screen Ethyl Alcohol COVID-19 (MARGARET) COVID-19 Clin Com Imaging Diagnostic Imaging Impressions Femur X-Ray 05/22/22 21:38 IMPRESSION: No fracture. Femur X-Ray 05/22/22 21:38 IMPRESSION: No fracture. Hip/Pelvis X-Ray 05/22/22 21:38 IMPRESSION: No fracture. Head CT 05/22/22 21:45 IMPRESSION: No acute intracranial abnormality including hemorrhage, mass effect, hydrocephalus, or acute territorial edematous infarction. DS: Summary Hospital Course Hospital Course: HPI: Pt is a 52 yo male with hx of Depression, cerebral palsy, diabetes with diabetic neuropathy who self presents for homicidal and suicidal ideation in the face of relational strife and relapse on alcohol. Denies history of SI, HI or aggressive behavior.?.? Patient denies psychiatric symptoms and does not want medications. Hospital course: On admission patient had gotten over his HI towards his brother. He was still upset about him but had sobered up, calmed down and shares this was nothing he was ever going to do, denying that he ever formed a plan or had actual intention. He shared about being very angry at his brother for stealing what he believes is his half of the inheritance and that when he found out, he relapsed with alcohol and in a drunken rage made homicidal and suicidal statements.? However, as he sobered, he thought better of it, not wanting to leave his nephews fatherless and called crisis/911 to get himself to the hospital for stability. Patient says he is not going to hurt his brother and that the HI has resolved; he denies any SI and reiterates that he never had any actual intent or plans. Over the past few days, patient contacted much of his extended family who knows about it and has been talking with patient, helping him calm down and encouraging him to consider legal action. Patient says his brother knows all about it. Otherwise, patient denies any psychiatric symptoms, including depression or anxiety and says he is overall pretty happy. He says that life is hard with cerebral palsy and tough for now with homelessness, but despite frustrations he denies depression. Patient does not want any psychiatric medications. He agreed to restart baclofen for muscle spasms associated with cerebral palsy. Over the course of his hospitalization, he remained without any HI or SI; he continued to talk with his family and felt supported by them and concluded he is just going to Kayla his brother for the inheritance with his family's help. During his stay, patient was irritable with staff, feeling his disability was being marginalized. Patient wanted discharge in signed a 3 day notice but was upset that it did not include weekends; initially accepted that he will have to remain on the unit for a little longer, however over the weekend his irritation over several things built up and he demanded discharge, grabbed staff member, would not be redirected and security was called resulting in restraint. However patient's anger very quickly resolved; recalling event, he said to ticket writer regarding the unit, you really don't know anything about handling people w/ disabilities... Otherwise, he was polite and appropriate with peers. Team contacted his family members for collateral for which patient gave permission, including to contact his brother. Family member corroborated the patient has no history of violence or aggression towards anybody and that he has known vice family to be very kind person. Patient's brother was contacted; patient's brother Juan knows of the homicidal threats his brother made but communicated that he is not overly concerned. Patient's 3 day notice was coming due. He remained without any SI or HI towards his brother and plans to go stay with a friend and then potentially family for a while after discharge. While patient remains vulnerable to relapse and emotional dysregulation, he continues to deny any SI or HI and has no history of SI or violence towards anyone; his brother and family are well aware of his comments and patient finds his family supportive. Patient is not in imminent risk for harm to self or others and does not meet criteria for involuntary commitment. His request for discharge honored. Time spent discussing smoking cessation with patient: 3 to 10 minutes Status at Discharge Functional status at discharge: independent ambulation Overall status at discharge: patient is back to baseline Time Spent with Patient Time attestation: Total time managing care of this patient today ____ minutes. Time spent: Less than 30 minutes Discharge Plan Discharge Anticipated Discharge Date/Time: 05/27/22 11:06 Patient Disposition: Home, Self-Care Discharge Diagnosis: Adjustment order with disturbance of mood and contact in full remission Referrals: [facility] [Other] - 06/17/22 3:00 pm (Rene told this social media marketing specialist he had an appointment in two weeks and he would follow up on that himself. ) [facility] [Other] - 1 Week (Rene was staying at this [facility] prior to admission and he would like to be able to go back. panel lay up worker is following up on this for Rene. ) [facility] [Other] - 1 Week (You have been referred to therapy. Call tomorrow to follow up) Kathya Nowak [facility] [Other] - 05/27/22 1:00 pm (Rene will need to report to the [facility] management today (05/27/22) at the main office before 4pm to review criteria. Your room is currently being held for you. ) [facility] Juan Lockwood Intake [Other] - 06/03/22 2:00 pm (In Person) [facility] Claire Mcbride Psyche Evaluation [Other] - 06/24/22 3:00 pm (In Person) [facility] Claire Puga Med Management [Other] - 07/24/22 1:00 pm (In Person) Discharge Medications: New baclofen 10 mg Tablet 10 mg PO TID PRN (Reason: muscle aches) Qty: 0 0RF Continued metformin 500 mg tablet 500 mg PO BID atorvastatin 10 mg tablet 10 mg PO DAILY triamcinolone acetonide 0.5 % ointment 1 appl TOPICAL BEDTIME Discharge Orders: Discharge Order (Routine); Ordered 05/27/22 Ordered By: Miguel A Chau Diet: Regular diet Activity on Discharge: As tolerated Stand Alone Forms: Patient Portal Discharge page, Community Support Care Plan Goals: Maintain mood and safe behaviors Take medications as prescribed Continue to pursue sobriety Practice coping skills Continue with outpatient providers and reach out to them as needed Health Concerns: Mood stability and behaviors Sobriety Diabetes Cerebral Palsy Plan of Treatment: Follow up with your PCP, psychiatric provider and other outpatient providers regarding above concerns Take medications as prescribed Assessment: Risk assessment at time of discharge:? Patient was interviewed prior to discharge and found to be fully oriented and without any SI or HI. Patient has insight and demonstrates good judgment in terms of wanting to pursue treatment. Patient is not in imminent risk of harm to self or others and has a safety plan that includes presenting to the closest ER or calling 911 if feeling unsafe.? Patient has been observed closely by nursing and unit staff throughout admission; patient has not engaged in any behaviors that suggest dangerousness to self or others and has demonstrated appropriate behaviors and impulse control Discharge Date/Time: 05/27/22 11:28
[2022-05-26] MEDS: hydrOXYzine HCL 25 MG TABLET PO (21:11)
[2022-05-26] MEDS: traZODone HCL 50 MG TABLET PO (21:11)
--- NOTE | 2022-05-26 21:12 | PC.NURSE ---
Pt is alert and oriented. Threw up about 60ml of undigested food, director call provider Isac is notified, order to monitor Pt given. Pt verbalizes feeling well and resting and in bed.
[2022-05-26] MEDS: Triamcinolone Acet 0.5 % Oint 15 GM TUBE 1 APPL TOPICAL (21:19)
[2022-05-26 22:47] LABS: Glucose, Whole Blood 100 mg/dL (60-115)
[2022-05-27] MEDS: Atorvastatin Calcium 10 MG TABLET PO (08:33)
[2022-05-27] MEDS: metFORMIN HCl 500 MG TABLET PO (08:34)
[2022-05-27 08:37] VITALS: BP 102/76; PULSE 90; RESP 18; TEMP 36.5; O2SAT 97
== END 2022-05-27 11:28 | disposition home or self-care (01) | DRG 755 ==
LOC: HO.ED 17:51 → HO.PM5 18:36
PROVIDERS: Clinical Nurse Specialist Psychiatric/Mental Health, Adult; Admitting Provider Psychiatry & Neurology Psychiatry; Emergency Provider Emergency Medicine; Visit Provider Psychiatry & Neurology Psychiatry
DX: F43.25 Adjustment disorder with mixed disturbance of emotions and conduct (principal); R45.851 Suicidal ideations; R45.850 Homicidal ideations; E11.9 Type 2 diabetes mellitus without complications; G80.9 Cerebral palsy, unspecified; F17.210 Nicotine dependence, cigarettes, uncomplicated; Z20.822 Contact with and (suspected) exposure to COVID-19; Z71.6 Tobacco abuse counseling; Z79.84 Long term (current) use of oral hypoglycemic drugs; Z79.899 Other long term (current) drug therapy
CPT/HCPCS: 36415; 70450; 73521; 73552; 80053; 80061; 80143; 80179; 80307; 81003; 82077; 82607; 82746; 82947; 83036; 83735; 84439; 84443; 85025; 87635; 93005; 97161; 99285; J0515; J2060; S9485

== ENCOUNTER 2023-04-29 22:36 | Emergency (ER) | payer MEDICAID, SELFPAY ==
[2023-04-29 22:39] VITALS: BP 137/87; PULSE 102; O2SAT 100
[2023-04-29 22:49] VITALS: BP 144/85; PULSE 94; RESP 18; TEMP 36.2; O2SAT 98; BMI 35.5
--- NOTE | 2023-04-30 03:33 | ED_ITS ---
HPI - General Adult General Chief complaint: Extremity Injury, Lower Stated complaint: abd pain x1 week, dark sputum Time Seen by Provider: 04/30/23 03:33 Source: patient Mode of arrival: ambulatory Limitations: no limitations History of Present Illness HPI narrative: Patient with history of cerebral palsy complaining of pain in his left leg which is chronic does not have any baclofen at home called his doctor who requested him to go to ER to get checked for DVT patient never had any DVT in the past no swelling of the leg Related Data Home Medications Medication Instructions Recorded Confirmed atorvastatin 10 mg tablet 10 mg PO DAILY 05/21/22 05/21/22 metformin 500 mg tablet 500 mg PO BID 05/21/22 05/21/22 triamcinolone acetonide 0.5 % 1 appl topical BEDTIME 05/21/22 05/21/22 topical ointment Previous Rx's Medication Instructions Recorded baclofen 10 mg tablet 10 mg PO TID PRN muscle aches #0 05/26/22 tabs Allergies Allergy/AdvReac Type Severity Reaction Status Date / Time shellfish derived Allergy Unknown NAUSEA & Verified 12/09/21 22:57 [SHELLFISH DERIVED] VOMITING Review of Systems Review of Systems: Yes all other systems are reviewed and are negative PMFSH Past Medical History Medical History Diabetes Cerebral palsy Social History Social History Household Members: None Housing: Homeless Do you presently have visiting nurse or other home services: No Alcohol intake: current Alcohol intake frequency: 0-2 drinks per day Patient Tobacco Use Status: Current everyday Tobacco user Tobacco use type: Cigarette Cigarette Packs Per Day: 1 Cigarettes Per Day: 20.0 Years Smoked: 32 Second Hand Smoke Exposure: Yes Substance Use Type: Marijuana Advance Directives: No Advance Directives Information Provided: Yes service: No Sexual orientation: Straight/Heterosexual Physical Exam ED Vital Signs: Vital Signs - 24 hr 04/29/23 22:49 04/30/23 04:43 Temperature 97.2 F Pulse Rate 94 90 Respiratory Rate 18 16 Blood Pressure 144/85 H Pulse Oximetry 98 96 Oxygen Delivery Method Room Air Room Air BMI result Body Mass Index 35.5 Appearance: Alert. Oriented X3. No acute distress. CVS: Normal heart rate and rhythm. Pulses normal. Respiratory: No respiratory distress. Equal air entry bilateral, Abdomen: Soft and nontender. Skin: Skin warm and dry. Normal skin color. Normal skin turgor. Extremities: No lower extremity edema. No calf tenderness diffuse spasm Homans sign neg Neuro: Oriented X 3. Cerebral palsy changes left lower extremity Medical Decision Making Medical Decision Making [facility] Narrative: D-dimer negative Homans sign negative likely with muscle spasm Differential Diagnosis Differential Diagnoses: The differential diagnosis associated with the presentation includes Muscle spasm/DVT Lab Data [facility] Lab Attestation statement: I reviewed the patient's lab results. Labs: Lab Results 04/30/23 Range/Units 04:13 D-Dimer High Sensitivty < 150 NG/ML Discharge Plan Discharge Clinical Impression: Muscle spasm Patient Disposition: Home, Self-Care Instructions: Muscle Spasm (ED) Additional Instructions: Continue muscle relaxants as prescribed by your PCP Your blood test is negative for blood clot Prescriptions: No Action metformin 500 mg tablet 500 mg PO BID atorvastatin 10 mg tablet 10 mg PO DAILY triamcinolone acetonide 0.5 % ointment 1 appl TOPICAL BEDTIME baclofen 10 mg Tablet 10 mg PO TID PRN (Reason: muscle aches) Qty: 0 0RF
[2023-04-30 04:27] LABS: D Dimer High Sensitivity < 150 NG/ML
[2023-04-30 04:43] VITALS: PULSE 90; RESP 16; O2SAT 96
== END 2023-04-30 04:44 | disposition home or self-care (01) ==
PROVIDERS: Emergency Provider Internal Medicine
DX: M62.838 Other muscle spasm (principal); M79.605 Pain in left leg; G80.9 Cerebral palsy, unspecified; F17.210 Nicotine dependence, cigarettes, uncomplicated; Z79.02 Long term (current) use of antithrombotics/antiplatelets; Z79.84 Long term (current) use of oral hypoglycemic drugs
CPT/HCPCS: 36415; 85379; 99282; 99283

== ENCOUNTER 2024-02-20 15:39 | Emergency (ER) | payer MEDICAID, SELFPAY ==
--- NOTE | ~2024-02-20 | CT_ITS ---
EXAMINATION: CT HEAD WITHOUT CONTRAST CLINICAL INFORMATION: Headache status-post trauma. COMPARISON: CT head dated 05/22/2022. TECHNIQUE: Contiguous axial imaging was performed from the skull base to vertex without intravenous administration of contrast. This CT examination was performed using dose optimization techniques as appropriate, variously including the following: *Automated exposure control *Adjustment of mA and/or kV according to patient size (this includes techniques or standardized protocols for targeted exams where dose is matched to indication/reason for exam; i.e. extremities or head) *Use of iterative reconstruction technique DLP: 704 mGy-cm FINDINGS: There is no acute intracranial hemorrhage or evidence of territorial infarction. No abnormal mass effect or midline shift is seen. Duggan to white matter differentiation is well preserved. There is no abnormal attenuation within the brain parenchyma. The ventricles are normal in size. No extra-axial fluid collections are identified. The calvarium and scalp soft tissues are normal. The middle ear cavity and mastoid air cells are clear. The visualized paranasal sinuses are clear. CT/CT head/brain wo IV con IMPRESSION: No acute intracranial pathology. Electronically signed by: Shaun Lozoya MD 02/20/2024 05:10 PM [facility] [place]
[2024-02-20 15:46] VITALS: BP 129/90; PULSE 95; RESP 18; TEMP 36.8; O2SAT 98
[2024-02-20 15:48] VITALS: BP 129/90; BP 144/90; PULSE 92; RESP 18; TEMP 36.7; O2SAT 97; O2SAT 98; BMI 33.8
[2024-02-20] MEDS: dexAMETHasone sod phosphate 10 MG/ML VIAL IVPUSH (16:40)
[2024-02-20] MEDS: Prochlorperazine Edisylate 10 MG/2 ML VIAL IVPUSH (16:40)
[2024-02-20] MEDS: diphenhydrAMINE HCL 50 MG/ML VIAL 25 MG IVPUSH (16:41)
[2024-02-20] MEDS: 0.9 % Sodium Chloride 500 ML IV (16:45)
[2024-02-20] MEDS: Acetaminophen 1,000 MG/100 ML PIGGYBACK 400 MG IV (16:46)
--- NOTE | 2024-02-20 17:03 | ED_ITS ---
HPI - Headache General Chief Complaint: Headache Stated Complaint: SYKES S/P FALL ON 02/17 PER EMS Time Seen by Provider: 02/20/24 16:11 Source: patient Limitations: no limitations History of Present Illness ED Provider: Nelida Castro PA-C HPI Narrative: 53 y/o M with hx of cerebral palsy,chronic left hip pain with scoliosis, gait instability using a walker to ambulate, DM, and adjustment disorder with mixed disturbance of emotions and conduct, presents with a headache x3 days. Patient states he tripped 3 days ago, and subsequently struck his head against the wall. Denies loss of consciousness. Patient in turn developed a frontal headache that radiates to the back of the skull, has been constant for 3 days. Associated phonophobia, photophobia, nausea. Denies visual changes or dizziness. Patient does not use a blood thinner. Related Data Home Medications ?Medication ?Instructions ?Recorded ?Confirmed atorvastatin 10 mg tablet 10 mg PO DAILY 05/21/22 05/21/22 metformin 500 mg tablet 500 mg PO BID 05/21/22 05/21/22 triamcinolone acetonide 0.5 % 1 appl topical BEDTIME 05/21/22 05/21/22 topical ointment Previous Rx's ?Medication ?Instructions ?Recorded baclofen 10 mg tablet 10 mg PO TID PRN muscle aches #0 05/26/22 tabs Allergies Allergy/AdvReac Type Severity Reaction Status Date / Time shellfish derived Allergy Unknown NAUSEA & Verified 02/20/24 15:49 [SHELLFISH DERIVED] VOMITING Review of Systems Review of Systems: Yes all other systems are reviewed and are negative Constitutional: Constitutional: Denies fatigue, Denies fever(s) and Reports headache(s) Eyes: Eyes: Denies loss of vision ENT: Denies dizziness and Reports headache(s) Cardiovascular: Cardiovascular: Denies chest pain and Denies dyspnea Respiratory: Respiratory: Denies dyspnea Gastrointestinal: Gastrointestinal: Denies abdominal pain, Reports nausea and Denies vomiting Neurologic: Denies dizziness, Reports headache(s), Denies focal weakness and Denies loss of vision Endocrine: Endocrine: Denies fatigue [facility] Past Medical History Attestation statement: The following information was validated with the patient. Medical History Diabetes Cerebral palsy Social History Social History Household Members: None Housing: Homeless Do you presently have visiting nurse or other home services: No Alcohol intake: current Alcohol intake frequency: 0-2 drinks per day Patient Tobacco Use Status: Current everyday Tobacco user Tobacco use type: Cigarette Cigarette Packs Per Day: 1 Cigarettes Per Day: 20.0 Years Smoked: 32 Second Hand Smoke Exposure: Yes Substance Use Type: Marijuana Advance Directives: No Advance Directives Information Provided: No Do you have a plan to hurt others: No Plan service: No Sexual orientation: Straight/Heterosexual Physical Exam Vital Signs: Vital Signs: Last Vital Signs Temp 98.0 F 02/20/24 15:48 Pulse 72 02/20/24 17:52 Resp 18 02/20/24 17:52 BP 128/72 02/20/24 17:52 Pulse Ox 99 02/20/24 17:52 O2 Del Method Room Air 02/20/24 17:52 BMI result Body Mass Index 33.8 Const: Other: Alert, overall well-appearing, no evidence of head trauma on exam Orientation/consciousness: patient oriented x3 Eyes: Pupils: Equal, round and reactive pupils present Resp: Other: Nonlabored respiration Cardio: Other: Normal peripheral perfusion Skin: Other: Warm dry no rash Neuro: General: patient oriented x3, no focal motor deficits and CN's II-XI intact bilaterally Cranial nerves: Yes Equal, round and reactive pupils present Psych: Other: Calm cooperative Course Reevaluation(s) Reevaluation #1: Headache resolved Time: 18:12 Medications Administered Discontinued Medications Generic Name Dose Route Start Last Admin Trade Name Bra[place] PRN Reason Stop Dose Admin Dexamethasone Sodium Phosphate 10 mg 02/20/24 16:25 02/20/24 16:40 Dexamethasone Sod Phosphate 10 Mg/Ml Vial IVPUSH 02/20/24 16:26 10 mg ONCE ONE Administration Diphenhydramine HCl 25 mg 02/20/24 16:25 02/20/24 16:41 Diphenhydramine Hcl 50 Mg/Ml Vial IVPUSH 02/20/24 16:26 25 mg ONCE ONE Administration Sodium Chloride 500 mls @ 500 mls/hr 02/20/24 16:25 02/20/24 16:45 Ns IV 02/20/24 17:24 500 mls/hr .Q1H ONE Administration Acetaminophen 1,000 mg in 100 mls @ 400 mls/hr 02/20/24 16:25 02/20/24 16:46 Ofirmev IV 02/20/24 16:39 400 mls/hr ONCE ONE Administration Prochlorperazine Edisylate 10 mg 02/20/24 16:25 02/20/24 16:40 Prochlorperazine Edisylate 10 Mg/2 Ml Vial IVPUSH 02/20/24 16:26 10 mg ONCE ONE Administration Medical Decision Making Medical Decision Making MDM Narrative: 53 y/o M with hx of cerebral palsy,chronic left hip pain with scoliosis, gait instability using a walker to ambulate, DM, and adjustment disorder with mixed disturbance of emotions and conduct, presents with a headache x3 days. Patient states he tripped 3 days ago, and subsequently struck his head against the wall. Denies loss of consciousness. Patient in turn developed a frontal headache that radiates to the back of the skull, has been constant for 3 days. Associated phonophobia, photophobia, nausea. Denies visual changes or dizziness. Patient does not use a blood thinner. Problem: CP, frequent falls, diabetes, psychiatric illness History: Per patient I have considered the following differential diagnoses: Intracranial hemorrhage, contusion, concussion, migraine Plan: Patient's headache has features of a migraine, we will give a migraine cocktail. The patient states this is the worst headache of his life, airing on the side of caution I am obtaining a CT scan. It is reassuring that he is neurologically intact, the injury occurred days ago, he is not on a thinner, and he is not altered, to suggest an intracranial hemorrhage. This could also be a concussion. No indication for screening labs I have independently reviewed the following tests: CT brain: CT/CT head/brain wo IV con IMPRESSION: No acute intracranial pathology. Electronically signed by: Shaun Lozoya MD 02/20/2024 05:10 PM [facility] Discharge Plan Discharge Clinical Impression: Headache Patient Disposition: Home, Self-Care Instructions: General Headache (ED) Additional Instructions: The CT of your brain was normal. You were treated for a headache that had features of a migraine. You responded to therapy. Follow up with your primary care provider as needed. Prescriptions: No Action metformin 500 mg tablet 500 mg PO BID atorvastatin 10 mg tablet 10 mg PO DAILY triamcinolone acetonide 0.5 % ointment 1 appl TOPICAL BEDTIME baclofen 10 mg Tablet 10 mg PO TID PRN (Reason: muscle aches) Qty: 0 0RF Print Language: Palauan
[2024-02-20 17:52] VITALS: BP 128/72; PULSE 72; RESP 18; O2SAT 99
[2024-02-20 18:31] VITALS: BP 125/80; PULSE 76; RESP 16; TEMP 36.7; O2SAT 98
== END 2024-02-20 18:32 | disposition home or self-care (01) ==
PROVIDERS: Emergency Provider Emergency Medicine Emergency Medical Services; PCP Pediatrics
DX: R51.9 Headache, unspecified (principal); M25.552 Pain in left hip; E11.9 Type 2 diabetes mellitus without complications; F17.210 Nicotine dependence, cigarettes, uncomplicated; H53.149 Visual discomfort, unspecified; R26.81 Unsteadiness on feet; R11.0 Nausea; Z79.899 Other long term (current) drug therapy
CPT/HCPCS: 70450; 96361; 96374; 96375; 99284; 99285; J0131; J0737; J1100; J1200